=== PATIENT | female | born 1945 | race Caucasian/White ===

== ENCOUNTER → 2017-08-19 14:22 | Outpatient (CLI) | payer MEDICARE, OTHER, SELFPAY | PROVIDERS: PCP Family Medicine; Visit Provider Nurse Practitioner Family | DX: J02.9 Acute pharyngitis, unspecified (principal) | CPT/HCPCS: 87070; 87077 ==

== ENCOUNTER → 2017-09-06 08:29 | Outpatient (CLI) | payer MEDICARE, OTHER, SELFPAY ==
[2017-09-06 09:50] LABS: Add Manual Diff / Slide Review NO; Basophils Percent Auto 0.9 % (0-2); Eosinophils Percent Auto 1.4 % (2-4); Hemoglobin 10.9 g/dL (12.0-16.0); Lymphocytes Percent Auto 41.1 % (25-40); Mean Corpuscular HGB Conc 34.1 % (30-36); Mean Corpuscular Hemoglobin 31.8 PG (26-34); Mean Corpuscular Volume 93.3 fL (80-100); Monocytes Percent Auto 10.2 % (3-14); Neutrophils Absolute Auto 1600 /uL (3000-5900); Neutrophils Percent Auto 46.4 % (50-75); Platelet Count 163 X10^3/uL (150-400); Red Blood Cell Count 3.43 X10^6/uL (4.0-5.2); Red Cell Distribution Width 13.7 % (11.6-14.8); White Blood Cell Count 3.5 X10^3/uL (4.5-11.0)
[2017-09-06 10:25] LABS: Prothrombin Time 10.6 SECONDS (10.1-12.7)
[2017-09-06 10:28] LABS: PTT Partial Thromboplastin Tim 30 SECONDS (26.4-36.2)
[2017-09-06 10:29] LABS: BUN Creatinine Ratio 15.7 (6-22); Blood Urea Nitrogen 11 mg/dL (7-17); Calcium 9.8 mg/dL (8.4-10.2); Carbon Dioxide 27 mmol/L (22-32); Chloride 96 mmol/L (98-107); Estimated Glomerular Filt Rate > 60.0 mL/min (>60); Glucose 91 mg/dL (80-110); HEMOLYSIS < 15 (0-50); Sodium 132 mmol/L (137-145)
== END ==
PROVIDERS: PCP Family Medicine; Visit Provider Internal Medicine
DX: Z01.818 Encounter for other preprocedural examination (principal)
CPT/HCPCS: 36415; 80048; 85025; 85610; 85730

== ENCOUNTER → 2017-09-30 08:39 | Outpatient (CLI) | payer MEDICARE, OTHER, SELFPAY ==
[2017-09-30 09:15] LABS: Add Manual Diff / Slide Review NO; Basophils Percent Auto 1.6 % (0-2); Eosinophils Percent Auto 1.5 % (2-4); Hemoglobin 10.1 g/dL (12.0-16.0); Lymphocytes Percent Auto 35.9 % (25-40); Mean Corpuscular HGB Conc 33.7 % (30-36); Mean Corpuscular Hemoglobin 31.1 PG (26-34); Mean Corpuscular Volume 92.5 fL (80-100); Monocytes Percent Auto 13.1 % (3-14); Neutrophils Absolute Auto 1800 /uL (3000-5900); Neutrophils Percent Auto 47.9 % (50-75); Platelet Count 249 X10^3/uL (150-400); Red Blood Cell Count 3.24 X10^6/uL (4.0-5.2); Red Cell Distribution Width 14.5 % (11.6-14.8); White Blood Cell Count 3.7 X10^3/uL (4.5-11.0)
--- NOTE | 2017-10-01 13:12 | ONC.NAV ---
Description: T/C re: 10/12 appointment Activity: Left a detailed message for pt re: her upcoming appt. with Dr. Russo. Explained briefly that he is not able to take [employer] (her secondary insurance), and asked if she would be okay seeing Heather for her f/u appt that day. Requested a return call to confirm.
--- NOTE | 2017-10-05 11:20 | ONC.NAV ---
Description: T/C re: appt. time/provider change Activity: Called pt to confirm that her time with LENNY Silvestre will be at 1:30pm on 10/12. She expressed to this CORPORATE RECRUITER yesterday that she was willing to be seen by Heather for this one visit, in order to avoid an out of pocket co-pay due to Dr. Russo not being credentialed with her secondary insurance.
== END ==
PROVIDERS: PCP Internal Medicine; Visit Provider Physician Assistant
DX: D64.9 Anemia, unspecified (principal)
CPT/HCPCS: 36415; 85025

== ENCOUNTER → 2017-10-08 11:00 | Outpatient (CLI) | payer MEDICARE, OTHER, SELFPAY | PROVIDERS: PCP Internal Medicine; Visit Provider Nurse Practitioner Gerontology | DX: C85.90 Non-Hodgkin lymphoma, unspecified, unspecified site (principal) | CPT/HCPCS: 36415; 80053; 83615; 85025 ==

== ENCOUNTER → 2018-02-09 09:18 | Outpatient (CLI) | payer MEDICARE, OTHER, SELFPAY ==
[2018-02-09 11:23] LABS: TSH w/ Reflex to FT4 0.39 uIU/mL (0.47-4.68)
[2018-02-09 12:06] LABS: Add Manual Diff / Slide Review NO; Basophils Percent Auto 0.7 % (0-2); Hematocrit 34.7 % (36-46); Hemoglobin 11.5 g/dL (12.0-16.0); Lymphocytes Percent Auto 43.6 % (25-40); Mean Corpuscular HGB Conc 33.2 % (30-36); Mean Corpuscular Hemoglobin 30.7 PG (26-34); Mean Corpuscular Volume 92.5 fL (80-100); Monocytes Percent Auto 11.2 % (3-14); Neutrophils Absolute Auto 1200 /uL (3000-5900); Neutrophils Percent Auto 43.5 % (50-75); Platelet Count 170 X10^3/uL (150-400); Red Blood Cell Count 3.76 X10^6/uL (4.0-5.2); Red Cell Distribution Width 14.4 % (11.6-14.8); White Blood Cell Count 2.9 X10^3/uL (4.5-11.0)
[2018-02-09 16:32] LABS: Cholesterol 242 mg/dL (140-199); HDL Cholesterol 107 mg/dL (40-60); LDL Cholesterol Calculated 125 mg/dL (<100); Triglycerides 50 mg/dL (35-150)
[2018-02-09 21:06] LABS: Free T4, Direct Thyroxine 1.84 ng/dL (0.78-2.19)
== END ==
PROVIDERS: Visit Provider Family Medicine
DX: E04.1 Nontoxic single thyroid nodule (principal); E78.5 Hyperlipidemia, unspecified; Z00.00 Encounter for general adult medical examination without abnormal findings
CPT/HCPCS: 36415; 80061; 84439; 84443; 85025

== ENCOUNTER → 2018-04-18 09:19 | Outpatient (CLI) | payer MEDICARE, OTHER, SELFPAY ==
[2018-04-18 10:48] LABS: Add Manual Diff / Slide Review NO; Basophils Absolute Auto 0 /uL (0-100); Basophils Percent Auto 0.7 % (0-2); Eosinophils Absolute Auto 0 /uL (0-450); Eosinophils Percent Auto 1.1 % (2-4); Hematocrit 33.1 % (36-46); Hemoglobin 11.1 g/dL (12.0-16.0); Lymphocytes Absolute Auto 1300 /uL (1100-4500); Lymphocytes Percent Auto 45.3 % (25-40); Mean Corpuscular HGB Conc 33.6 % (30-36); Mean Corpuscular Hemoglobin 30.9 PG (26-34); Monocytes Absolute Auto 400 /uL (0-900); Monocytes Percent Auto 13.2 % (3-14); Neutrophils Absolute Auto 1200 /uL (1500-7000); Neutrophils Percent Auto 39.7 % (50-75); Platelet Count 168 X10^3/uL (150-400); Red Cell Distribution Width 13.9 % (11.6-14.8); White Blood Cell Count 2.9 X10^3/uL (4.5-11.0)
[2018-04-18 11:04] LABS: Alanine Aminotransferase 22 IU/L (9-52); Albumin 4.2 g/dL (3.5-5.0); Albumin Globulin Ratio 1.3 (1.0-2.8); Alkaline Phosphatase 58 U/L (38-126); Aspartate Aminotransferase 22 IU/L (14-36); BUN Creatinine Ratio 15.7 (6-22); Bilirubin Total 0.5 mg/dL (0.2-1.3); Blood Urea Nitrogen 11 mg/dL (7-17); Calcium 9.9 mg/dL (8.4-10.2); Carbon Dioxide 24 mmol/L (22-32); Chloride 100 mmol/L (98-107); Estimated Glomerular Filt Rate > 60.0 mL/min (>60); Globulin 3.3 g/dL (1.7-4.1); Glucose 91 mg/dL (80-110); HEMOLYSIS < 15 (0-50); Lactate Dehydrogenase 391 U/L (313-618); Potassium 4.1 mmol/L (3.4-5.1); Sodium 132 mmol/L (137-145); Total Protein 7.5 g/dL (6.3-8.2)
== END ==
PROVIDERS: PCP Family Medicine; Visit Provider Nurse Practitioner Gerontology
DX: C85.90 Non-Hodgkin lymphoma, unspecified, unspecified site (principal)
CPT/HCPCS: 36415; 80053; 83615; 85025

== ENCOUNTER → 2018-05-19 08:56 | Outpatient (CLI) | payer MEDICARE, OTHER, SELFPAY ==
[2018-05-19 10:30] LABS: Vitamin D 25 Hydroxy (D3) 45.9 ng/mL (30.0-100.0)
[2018-05-19 10:40] LABS: TSH w/ Reflex to FT4 0.71 uIU/mL (0.47-4.68)
== END ==
PROVIDERS: PCP Family Medicine; Visit Provider Family Medicine
DX: E04.1 Nontoxic single thyroid nodule (principal); M81.0 Age-related osteoporosis without current pathological fracture
CPT/HCPCS: 36415; 82306; 84443

== ENCOUNTER → 2019-04-13 09:00 | Outpatient (CLI) | payer MEDICARE, OTHER, SELFPAY ==
[2019-04-13 09:45] LABS: Add Manual Diff / Slide Review NO; Basophils Absolute Auto 0 /uL (0-100); Basophils Percent Auto 0.9 % (0-2); Eosinophils Absolute Auto 0 /uL (0-450); Eosinophils Percent Auto 0.8 % (2-4); Hemoglobin 11.4 g/dL (12.0-16.0); Lymphocytes Absolute Auto 1800 /uL (1100-4500); Lymphocytes Percent Auto 50.5 % (25-40); Mean Corpuscular HGB Conc 33.7 % (30-36); Mean Corpuscular Hemoglobin 31.3 PG (26-34); Mean Corpuscular Volume 92.9 fL (80-100); Monocytes Absolute Auto 400 /uL (0-900); Neutrophils Absolute Auto 1300 /uL (1500-7000); Neutrophils Percent Auto 36.8 % (50-75); Platelet Count 168 X10^3/uL (150-400); Red Blood Cell Count 3.66 X10^6/uL (4.0-5.2); Red Cell Distribution Width 14.2 % (11.6-14.8); White Blood Cell Count 3.6 X10^3/uL (4.5-11.0)
[2019-04-13 09:58] LABS: Alanine Aminotransferase 10 IU/L (<35); Albumin 4.3 g/dL (3.5-5.0); Albumin Globulin Ratio 1.3 (1.0-2.8); Alkaline Phosphatase 52 U/L (38-126); Aspartate Aminotransferase 22 IU/L (14-36); BUN Creatinine Ratio 21.4 (6-22); Bilirubin Total 0.6 mg/dL (0.2-1.3); Blood Urea Nitrogen 15 mg/dL (7-17); Calcium 10.3 mg/dL (8.4-10.2); Carbon Dioxide 28 mmol/L (22-32); Chloride 102 mmol/L (98-107); Estimated Glomerular Filt Rate > 60.0 mL/min (>60); Globulin 3.4 g/dL (1.7-4.1); Glucose 89 mg/dL (80-110); HEMOLYSIS < 15 (0-50); Lactate Dehydrogenase 393 U/L (313-618); Potassium 4.2 mmol/L (3.4-5.1); Sodium 137 mmol/L (137-145); Total Protein 7.7 g/dL (6.3-8.2)
== END ==
PROVIDERS: PCP Family Medicine
DX: C85.90 Non-Hodgkin lymphoma, unspecified, unspecified site (principal)
CPT/HCPCS: 36415; 80053; 83615; 85025

== ENCOUNTER → 2020-06-11 09:47 | Outpatient (CLI) | payer MEDICARE, OTHER, SELFPAY ==
[2020-06-11 11:07] LABS: Cholesterol 245 mg/dL (140-199); HDL Cholesterol 104 mg/dL (40-60); LDL Cholesterol Calculated 127 mg/dL (<100); Triglycerides 71 mg/dL (35-150)
[2020-06-11 11:33] LABS: TSH w/ Reflex to FT4 0.33 uIU/mL (0.47-4.68)
[2020-06-11 11:59] LABS: Free T4, Direct Thyroxine 1.59 ng/dL (0.78-2.19)
== END ==
PROVIDERS: PCP Family Medicine; Referring Provider Family Medicine; Visit Provider Family Medicine
DX: E03.9 Hypothyroidism, unspecified (principal); E78.5 Hyperlipidemia, unspecified
CPT/HCPCS: 36415; 80061; 84439; 84443

== ENCOUNTER 2020-07-22 11:00 | Outpatient (RCR) | payer MEDICARE, OTHER, SELFPAY ==
--- NOTE | 2020-06-24 15:15 | PT.OIE ---
Current Diagnoses Polyneuropathy, unspecified (06/24/20) History of falling (06/24/20) Past Medical History (Last Updated 06/03/20 @ 19:40 by Heather Katz DO) Anemia Chronic hepatitis C virus infection (08/10/14) Hepatitis C (2012) Hyperlipidemia Lumbar spinal stenosis Lymphoma, non-Hodgkin's (2008) Osteoporosis Thyroid nodule Tubular adenoma of colon (2013) Past Surgical History (Last Updated 09/22/17 @ 09:00 by Kadi Jimenez) History of colonoscopy (2007) History of hysterectomy for benign disease (1983) History of oophorectomy (2009) Visit Care Team Role Provider Type Heather Katz DO Attending Provider Physician Family Provider Primary Care Provider Referring Provider Specialty: Family Practice Address: [address] [place] [address], [address], [facility] Email: [email or web address] Physical Therapy Initial Evaluation PT-OP-A Visit Information Start: 06/21/20 07:57 Freq: Status: Active Protocol: Document 06/24/20 11:00 AMB (Rec: 06/24/20 15:14 AMB [email or web address]) Out-Patient Physical Therapy Visit Information Visit Information Visit Type Initial Evaluation Visit Start Time 11:00 Visit Stop Time 11:45 Total Visit Minutes 45 Visit Number 1 PT-OP-B Current Condition Start: 06/21/20 07:57 Freq: Status: Active Protocol: Document 06/24/20 11:00 AMB (Rec: 06/24/20 11:21 AMB [id number]) Current Condition History of Current Condition Onset Date chronic Current Complaints impaired balance History of Current Condition Trips on sidewalk, does have neuropathy from chemo. Did have a bad fall a year ago, when fell on the right knee. 2 falls in the last 6 months. Typically walks 3-4 miles, used to walk 4-5 miles a year ago. Did have a concussion from a fall at least 5 years ago. When on chemo, got on an antibiotic and was diagnosed with achilles tendonitis, continues to have pain in calves despite previous PT for that. Treatment Goals Patient/Caregiver Goals Looking for HEP for balance, increase walking without tripping on feet Prior Functional Status Baseline Function- ADL's Independent Baseline Function- Mobility Independent Current Functional Impairments (Reported) Functional Limitations- ADL's Multiple history of falls, limits walks due to feeling that she will trip over her feet at the end of her walk if she really pushes herself Personal Factors Other Personal Factors That May Effect L4-5 fusion 2018, glaucoma, Therapy/Recovery heck pain, previous chemotherapy for nonHodgkins lymphoma PT-OP-C Subjective Start: 06/21/20 07:57 Freq: Status: Active Protocol: Document 06/24/20 11:00 AMB (Rec: 06/24/20 15:14 AMB [email or web address]) Patient Questionnaires ABC- Activity Specific Balance Confidence Scale ABC Score 83 ABC Functional Impairment 1 to <20% Impaired (Score 81- 99) PT-OP-D Balance Start: 06/21/20 07:57 Freq: Status: Active Protocol: Document 06/24/20 11:00 AMB (Rec: 06/24/20 15:14 AMB [email or web address]) Balance Tests mCTSIB mCTSIB Position 1 30 mCTSIB Position 2 30 mCTSIB Position 3 30 mCTSIB Position 4 30 with increased ankle sway PT-OP-E Functional Tests Start: 06/21/20 07:57 Freq: Status: Active Protocol: Document 06/24/20 11:00 AMB (Rec: 06/24/20 15:14 AMB [email or web address]) Functional Tests Dynamic Gait Index (DGI) Score 21 DGI Impairment Rating 1 to <20% Impaired (Score 20- 23) PT-OP-G Mobility & Gait Start: 06/21/20 07:57 Freq: Status: Active Protocol: Document 06/24/20 11:00 AMB (Rec: 06/24/20 15:14 AMB [email or web address]) OP Gait Assessment Comments Gait Comments Good walking for short distances indoors without AD, increased veering with horizontal head turns. Stairs -one mild mistep- self corrected, did not use railings PT-OP-H Neuro Start: 06/21/20 07:57 Freq: Status: Active Protocol: Document 06/24/20 11:00 AMB (Rec: 06/24/20 15:14 AMB [email or web address]) Coordination Evaluation Lower Extremity Tests Left Foot Tapping Test Normal Performance PT-OP-M Strength Start: 06/21/20 07:57 Freq: Status: Active Protocol: Document 06/24/20 11:00 AMB (Rec: 06/24/20 15:14 AMB [email or web address]) Hip Strength Hip Manual Muscle Testing Right Flexion (L2) 4+ Good+ Extension (S1) 4+ Good+ Abduction 4 Good Adduction 4 Good Left Flexion (L2) 4+ Good+ Extension (S1) 4+ Good+ Abduction 4 Good Adduction 4 Good Knee Strength Knee Manual Muscle Testing Right Flexion (S2) 5 Normal Extension (L3) 5 Normal Left Flexion (S2) 5 Normal Extension (L3) 5 Normal Ankle/Foot Strength Ankle and Foot Manual Muscle Testing Right Dorsiflexion (L4) 4 Good Plantarflexion (S1) 5 Normal Left Dorsiflexion (L4) 4 Good Plantarflexion (S1) 4+ Good+ PT-OP-T Assessment and Plan Start: 06/21/20 07:57 Freq: Status: Active Protocol: Document 06/24/20 11:00 AMB (Rec: 06/24/20 15:14 AMB [email or web address]) Physical Therapy Assessment Rehab Potential Rehabilitation Potential Good Evaluation Complexity Number of Personal Factors/Comorbidities 1-2 Number of Body Systems Impaired 3 Clinical Presentation at Evaluation Evolving Impairments Impairments Balance,Functional Activities, Gait,Sensation,Strength Goals Two Impairment Balance Short Term Goal (STG) Whitley will improve her DGI score to 23/24 or better, showing decreased risk of falling. STG Duration 4 weeks Skilled Nursing Goal (LTG) Whitley will walk while turning her head without veering so she can safely walk through a parking lot while checking for traffic. LTG Duration 8 weeks One Impairment HEP Short Term Goal (STG) Whitley will be independent with a HEP for balance and LE strength/agility. STG Duration 4 weeks Assessment Summary Assessment Whitley attends physical therapy with reduced LE sensation/strength that is contributing to her history of falling. While her MMT looked ok, she describes more difficulty with her balance when her legs are fatigued, as well as in low light conditions. While physical therapy cannot change her decreased sensation, she is very dependent upon her vision for her balance. She will benefit from physical therapy to improve her reactive balance, decrease her reliance on her vision, and improve her ankle strength all to decrease her risk of falling. Physical Therapy Plan Frequency and Duration Frequency of Treatment 1x/Week Duration of Treatment 8 weeks Plan of Care Start Date 06/24/20 Plan of Care End Date 08/19/20 Therapeutic Interventions Therapeutic Interventions Balance Training,Gait Training ,Home Exercise Program,Manual Therapy,Neuromuscular Re- education,Self-Care/Home Management,Therapeutic Activities,Therapeutic Exercises Modalities Cold Pack/Ice Massage,Hot Packs Next Visit Focus/Plan Next Note Type Treatment Note Next Visit Plan Begin training in reactive balance, ankle strengthening, follow up on corner balance ( stride stance EO HT)
--- NOTE | 2020-06-24 15:15 | PT.OPPOC ---
Physical, Occupational & Speech Therapy At [facility] Current Diagnoses Polyneuropathy, unspecified (06/24/20) History of falling (06/24/20) Visit Care Team Role Provider Type Heather Katz DO Attending Provider Physician Family Provider Primary Care Provider Referring Provider Specialty: Family Practice Address: [address] [place] [address], [address], [facility] Email: [email or web address] Plan Of Care PT-OP-T Assessment and Plan Start: 06/21/20 07:57 Freq: Status: Active Protocol: Document 06/24/20 11:00 AMB (Rec: 06/24/20 15:14 AMB [email or web address]) Physical Therapy Assessment Rehab Potential Rehabilitation Potential Good Evaluation Complexity Number of Personal Factors/Comorbidities 1-2 Number of Body Systems Impaired 3 Clinical Presentation at Evaluation Evolving Impairments Impairments Balance,Functional Activities, Gait,Sensation,Strength Goals Two Impairment Balance Short Term Goal (STG) Whitley will improve her DGI score to 23/24 or better, showing decreased risk of falling. STG Duration 4 weeks Mcc Goal (LTG) Whitley will walk while turning her head without veering so she can safely walk through a parking lot while checking for traffic. LTG Duration 8 weeks One Impairment HEP Short Term Goal (STG) Whitley will be independent with a HEP for balance and LE strength/agility. STG Duration 4 weeks Assessment Summary Assessment Whitley attends physical therapy with reduced LE sensation/strength that is contributing to her history of falling. While her MMT looked ok, she describes more difficulty with her balance when her legs are fatigued, as well as in low light conditions. While physical therapy cannot change her decreased sensation, she is very dependent upon her vision for her balance. She will benefit from physical therapy to improve her reactive balance, decrease her reliance on her vision, and improve her ankle strength all to decrease her risk of falling. Physical Therapy Plan Frequency and Duration Frequency of Treatment 1x/Week Duration of Treatment 8 weeks Plan of Care Start Date 06/24/20 Plan of Care End Date 08/19/20 Therapeutic Interventions Therapeutic Interventions Balance Training,Gait Training ,Home Exercise Program,Manual Therapy,Neuromuscular Re- education,Self-Care/Home Management,Therapeutic Activities,Therapeutic Exercises Modalities Cold Pack/Ice Massage,Hot Packs Next Visit Focus/Plan Next Note Type Treatment Note Next Visit Plan Begin training in reactive balance, ankle strengthening, follow up on corner balance ( stride stance EO HT) Plan of Care Dates Plan of Care Start Date 06/24/20 Plan of Care End Date 08/19/20 Electronically Signed by: Patricia Harris, PT 06/24/20 [id number] Please Sign and Return: I have reviewed this Plan of Care and certify that the skilled therapy services above are required to meet the patient?s needs. Physician Signature Date Printed Name and Credentials Clinical Instructor Signature Printed Name and Credentials
--- NOTE | 2020-07-01 16:12 | PT.OTN ---
Current Diagnoses Polyneuropathy, unspecified (07/01/20) History of falling (07/01/20) Physical Therapy Treatment Note PT-OP-A Visit Information Start: 06/21/20 07:57 Freq: Status: Active Protocol: Document 07/01/20 11:25 AMB (Rec: 07/01/20 11:59 AMB [id number]) Out-Patient Physical Therapy Visit Information Visit Information Visit Type Treatment Note Visit Note pt arrived 10 min late Visit Start Time 11:10 Visit Stop Time 11:50 Total Visit Minutes 40 Visit Number 2 PT-OP-B Current Condition Start: 06/21/20 07:57 Freq: Status: Active Protocol: Document 06/24/20 11:00 AMB (Rec: 06/24/20 11:21 AMB [id number]) Current Condition History of Current Condition Onset Date chronic Current Complaints impaired balance History of Current Condition Trips on sidewalk, does have neuropathy from chemo. Did have a bad fall a year ago, when fell on the right knee. 2 falls in the last 6 months. Typically walks 3-4 miles, used to walk 4-5 miles a year ago. Did have a concussion from a fall at least 5 years ago. When on chemo, got on an antibiotic and was diagnosed with achilles tendonitis, continues to have pain in calves despite previous PT for that. Treatment Goals Patient/Caregiver Goals Looking for HEP for balance, increase walking without tripping on feet Prior Functional Status Baseline Function- ADL's Independent Baseline Function- Mobility Independent Current Functional Impairments (Reported) Functional Limitations- ADL's Multiple history of falls, limits walks due to feeling that she will trip over her feet at the end of her walk if she really pushes herself Personal Factors Other Personal Factors That May Effect L4-5 fusion 2018, glaucoma, Therapy/Recovery heck pain, previous chemotherapy for nonHodgkins lymphoma PT-OP-C Subjective Start: 06/21/20 07:57 Freq: Status: Active Protocol: Document 07/01/20 11:25 AMB (Rec: 07/01/20 11:59 AMB [id number]) OP-PT Subjective Patient Comments Patient Comments Pt did have some neck pain with modified tandem with head turns. PT-OP-D Balance Start: 06/21/20 07:57 Freq: Status: Active Protocol: Document 06/24/20 11:00 AMB (Rec: 06/24/20 15:14 AMB [email or web address]) Balance Tests mCTSIB mCTSIB Position 1 30 mCTSIB Position 2 30 mCTSIB Position 3 30 mCTSIB Position 4 30 with increased ankle sway PT-OP-E Functional Tests Start: 06/21/20 07:57 Freq: Status: Active Protocol: Document 06/24/20 11:00 AMB (Rec: 06/24/20 15:14 AMB [email or web address]) Functional Tests Dynamic Gait Index (DGI) Score 21 DGI Impairment Rating 1 to <20% Impaired (Score 20- 23) PT-OP-G Mobility & Gait Start: 06/21/20 07:57 Freq: Status: Active Protocol: Document 06/24/20 11:00 AMB (Rec: 06/24/20 15:14 AMB [email or web address]) OP Gait Assessment Comments Gait Comments Good walking for short distances indoors without AD, increased veering with horizontal head turns. Stairs -one mild mistep- self corrected, did not use railings PT-OP-H Neuro Start: 06/21/20 07:57 Freq: Status: Active Protocol: Document 06/24/20 11:00 AMB (Rec: 06/24/20 15:14 AMB [email or web address]) Coordination Evaluation Lower Extremity Tests Left Foot Tapping Test Normal Performance PT-OP-M Strength Start: 06/21/20 07:57 Freq: Status: Active Protocol: Document 06/24/20 11:00 AMB (Rec: 06/24/20 15:14 AMB [email or web address]) Hip Strength Hip Manual Muscle Testing Right Flexion (L2) 4+ Good+ Extension (S1) 4+ Good+ Abduction 4 Good Adduction 4 Good Left Flexion (L2) 4+ Good+ Extension (S1) 4+ Good+ Abduction 4 Good Adduction 4 Good Knee Strength Knee Manual Muscle Testing Right Flexion (S2) 5 Normal Extension (L3) 5 Normal Left Flexion (S2) 5 Normal Extension (L3) 5 Normal Ankle/Foot Strength Ankle and Foot Manual Muscle Testing Right Dorsiflexion (L4) 4 Good Plantarflexion (S1) 5 Normal Left Dorsiflexion (L4) 4 Good Plantarflexion (S1) 4+ Good+ PT-OP-Q Treatments Start: 06/21/20 07:57 Freq: Status: Active Protocol: Document 07/01/20 11:00 AMB (Rec: 07/01/20 16:10 AMB [id number]) Gym Equipment Shuttle Balance 1 Details RED Reps/Duration 10 min Comments NBOS and then modified tandem Therapeutic Exercises Sitting Exercises 2 Sitting Exercise Name dorsiflexion AROM Reps/Minutes 3 min 1 Sitting Exercise Name ankle eversion Resistance #3 t band Reps/Minutes 2x10 Standing Exercises 1 Standing Exercise Name heel raises Comments standing- double then single leg Neuro Re-Education Treatment Balance Activities 1 Details foam balance Comments hollins foam, then two blue pods for modified tandem stance PT-OP-T Assessment and Plan Start: 06/21/20 07:57 Freq: Status: Active Protocol: Document 07/01/20 11:25 AMB (Rec: 07/01/20 11:59 AMB [id number]) Physical Therapy Assessment Assessment Summary Assessment Whitley does better when R LE is back in stride stance activities. Overall tolerated balance activities well, but will need to recheck on how she felt next day due to delayed onset soreness. Physical Therapy Plan Next Visit Focus/Plan Next Note Type Treatment Note Next Visit Plan Begin training in reactive balance, ankle strengthening, follow up on corner balance ( stride stance EO HT), added heel raises and toe taping for ant tib
--- NOTE | 2020-07-09 15:46 | PT.OTN ---
Current Diagnoses Polyneuropathy, unspecified (07/09/20) History of falling (07/09/20) Physical Therapy Treatment Note PT-OP-A Visit Information Start: 06/21/20 07:57 Freq: Status: Active Protocol: Document 07/09/20 10:15 AMB (Rec: 07/09/20 11:02 AMB [email or web address]) Out-Patient Physical Therapy Visit Information Visit Information Visit Type Treatment Note Visit Start Time 10:15 Visit Stop Time 11:00 Total Visit Minutes 45 Visit Number 3 PT-OP-B Current Condition Start: 06/21/20 07:57 Freq: Status: Active Protocol: Document 06/24/20 11:00 AMB (Rec: 06/24/20 11:21 AMB [id number]) Current Condition History of Current Condition Onset Date chronic Current Complaints impaired balance History of Current Condition Trips on sidewalk, does have neuropathy from chemo. Did have a bad fall a year ago, when fell on the right knee. 2 falls in the last 6 months. Typically walks 3-4 miles, used to walk 4-5 miles a year ago. Did have a concussion from a fall at least 5 years ago. When on chemo, got on an antibiotic and was diagnosed with achilles tendonitis, continues to have pain in calves despite previous PT for that. Treatment Goals Patient/Caregiver Goals Looking for HEP for balance, increase walking without tripping on feet Prior Functional Status Baseline Function- ADL's Independent Baseline Function- Mobility Independent Current Functional Impairments (Reported) Functional Limitations- ADL's Multiple history of falls, limits walks due to feeling that she will trip over her feet at the end of her walk if she really pushes herself Personal Factors Other Personal Factors That May Effect L4-5 fusion 2018, glaucoma, Therapy/Recovery heck pain, previous chemotherapy for nonHodgkins lymphoma PT-OP-C Subjective Start: 06/21/20 07:57 Freq: Status: Active Protocol: Document 07/09/20 10:15 AMB (Rec: 07/09/20 11:02 AMB [email or web address]) OP-PT Subjective Patient Comments Patient Comments Pt feels like she might be getting better with the balance exercises. PT-OP-D Balance Start: 06/21/20 07:57 Freq: Status: Active Protocol: Document 06/24/20 11:00 AMB (Rec: 06/24/20 15:14 AMB [email or web address]) Balance Tests mCTSIB mCTSIB Position 1 30 mCTSIB Position 2 30 mCTSIB Position 3 30 mCTSIB Position 4 30 with increased ankle sway PT-OP-E Functional Tests Start: 06/21/20 07:57 Freq: Status: Active Protocol: Document 06/24/20 11:00 AMB (Rec: 06/24/20 15:14 AMB [email or web address]) Functional Tests Dynamic Gait Index (DGI) Score 21 DGI Impairment Rating 1 to <20% Impaired (Score 20- 23) PT-OP-G Mobility & Gait Start: 06/21/20 07:57 Freq: Status: Active Protocol: Document 06/24/20 11:00 AMB (Rec: 06/24/20 15:14 AMB [email or web address]) OP Gait Assessment Comments Gait Comments Good walking for short distances indoors without AD, increased veering with horizontal head turns. Stairs -one mild mistep- self corrected, did not use railings PT-OP-H Neuro Start: 06/21/20 07:57 Freq: Status: Active Protocol: Document 06/24/20 11:00 AMB (Rec: 06/24/20 15:14 AMB [email or web address]) Coordination Evaluation Lower Extremity Tests Left Foot Tapping Test Normal Performance PT-OP-M Strength Start: 06/21/20 07:57 Freq: Status: Active Protocol: Document 06/24/20 11:00 AMB (Rec: 06/24/20 15:14 AMB [email or web address]) Hip Strength Hip Manual Muscle Testing Right Flexion (L2) 4+ Good+ Extension (S1) 4+ Good+ Abduction 4 Good Adduction 4 Good Left Flexion (L2) 4+ Good+ Extension (S1) 4+ Good+ Abduction 4 Good Adduction 4 Good Knee Strength Knee Manual Muscle Testing Right Flexion (S2) 5 Normal Extension (L3) 5 Normal Left Flexion (S2) 5 Normal Extension (L3) 5 Normal Ankle/Foot Strength Ankle and Foot Manual Muscle Testing Right Dorsiflexion (L4) 4 Good Plantarflexion (S1) 5 Normal Left Dorsiflexion (L4) 4 Good Plantarflexion (S1) 4+ Good+ PT-OP-Q Treatments Start: 06/21/20 07:57 Freq: Status: Active Protocol: Document 07/09/20 10:15 AMB (Rec: 07/09/20 15:45 AMB [email or web address]) Gym Equipment Shuttle Balance 1 Details RED Reps/Duration 10 min Comments NBOS and then modified tandem. Added EC- challenging Neuro Re-Education Treatment Balance Activities 4 Details reactive balance Comments fwd/lateral/backward stepping 3 Details bosu ball Comments needed UE support for double leg EO 2 Details wobble board Comments a/p, m/l 1 Details foam balance Comments hollins foam, then blue foam EC PT-OP-T Assessment and Plan Start: 06/21/20 07:57 Freq: Status: Active Protocol: Document 07/09/20 10:15 AMB (Rec: 07/09/20 15:45 AMB [email or web address]) Physical Therapy Assessment Assessment Summary Assessment Whitley did well with blue foam and wobble board, bosu ball was likely too challenging. Physical Therapy Plan Next Visit Focus/Plan Next Note Type Treatment Note Next Visit Plan Follow up on balance with wobble board- pt interested in getting one
--- NOTE | 2020-07-17 08:29 | PT.OTN ---
Current Diagnoses Polyneuropathy, unspecified (07/17/20) History of falling (07/17/20) Physical Therapy Treatment Note PT-OP-A Visit Information Start: 06/21/20 07:57 Freq: Status: Active Protocol: Document 07/17/20 07:30 AMB (Rec: 07/20/20 08:28 AMB [email or web address]) Out-Patient Physical Therapy Visit Information Visit Information Visit Type Treatment Note Visit Start Time 07:30 Visit Stop Time 08:15 Total Visit Minutes 45 Visit Number 4 PT-OP-B Current Condition Start: 06/21/20 07:57 Freq: Status: Active Protocol: Document 06/24/20 11:00 AMB (Rec: 06/24/20 11:21 AMB [id number]) Current Condition History of Current Condition Onset Date chronic Current Complaints impaired balance History of Current Condition Trips on sidewalk, does have neuropathy from chemo. Did have a bad fall a year ago, when fell on the right knee. 2 falls in the last 6 months. Typically walks 3-4 miles, used to walk 4-5 miles a year ago. Did have a concussion from a fall at least 5 years ago. When on chemo, got on an antibiotic and was diagnosed with achilles tendonitis, continues to have pain in calves despite previous PT for that. Treatment Goals Patient/Caregiver Goals Looking for HEP for balance, increase walking without tripping on feet Prior Functional Status Baseline Function- ADL's Independent Baseline Function- Mobility Independent Current Functional Impairments (Reported) Functional Limitations- ADL's Multiple history of falls, limits walks due to feeling that she will trip over her feet at the end of her walk if she really pushes herself Personal Factors Other Personal Factors That May Effect L4-5 fusion 2018, glaucoma, Therapy/Recovery heck pain, previous chemotherapy for nonHodgkins lymphoma PT-OP-C Subjective Start: 06/21/20 07:57 Freq: Status: Active Protocol: Document 07/17/20 07:30 AMB (Rec: 07/20/20 08:28 AMB [email or web address]) OP-PT Subjective Patient Comments Patient Comments Pt bought a bosu ball. PT-OP-D Balance Start: 06/21/20 07:57 Freq: Status: Active Protocol: Document 06/24/20 11:00 AMB (Rec: 06/24/20 15:14 AMB [email or web address]) Balance Tests mCTSIB mCTSIB Position 1 30 mCTSIB Position 2 30 mCTSIB Position 3 30 mCTSIB Position 4 30 with increased ankle sway PT-OP-E Functional Tests Start: 06/21/20 07:57 Freq: Status: Active Protocol: Document 06/24/20 11:00 AMB (Rec: 06/24/20 15:14 AMB [email or web address]) Functional Tests Dynamic Gait Index (DGI) Score 21 DGI Impairment Rating 1 to <20% Impaired (Score 20- 23) PT-OP-G Mobility & Gait Start: 06/21/20 07:57 Freq: Status: Active Protocol: Document 06/24/20 11:00 AMB (Rec: 06/24/20 15:14 AMB [email or web address]) OP Gait Assessment Comments Gait Comments Good walking for short distances indoors without AD, increased veering with horizontal head turns. Stairs -one mild mistep- self corrected, did not use railings PT-OP-H Neuro Start: 06/21/20 07:57 Freq: Status: Active Protocol: Document 06/24/20 11:00 AMB (Rec: 06/24/20 15:14 AMB [email or web address]) Coordination Evaluation Lower Extremity Tests Left Foot Tapping Test Normal Performance PT-OP-M Strength Start: 06/21/20 07:57 Freq: Status: Active Protocol: Document 06/24/20 11:00 AMB (Rec: 06/24/20 15:14 AMB [email or web address]) Hip Strength Hip Manual Muscle Testing Right Flexion (L2) 4+ Good+ Extension (S1) 4+ Good+ Abduction 4 Good Adduction 4 Good Left Flexion (L2) 4+ Good+ Extension (S1) 4+ Good+ Abduction 4 Good Adduction 4 Good Knee Strength Knee Manual Muscle Testing Right Flexion (S2) 5 Normal Extension (L3) 5 Normal Left Flexion (S2) 5 Normal Extension (L3) 5 Normal Ankle/Foot Strength Ankle and Foot Manual Muscle Testing Right Dorsiflexion (L4) 4 Good Plantarflexion (S1) 5 Normal Left Dorsiflexion (L4) 4 Good Plantarflexion (S1) 4+ Good+ PT-OP-Q Treatments Start: 06/21/20 07:57 Freq: Status: Active Protocol: Document 07/17/20 07:30 AMB (Rec: 07/20/20 08:28 AMB [email or web address]) Neuro Re-Education Treatment Balance Activities 6 Details hallway walking Comments HT horiz and vertical 5 Details corner balance Reps/Duration 15 min Comments NBOS, modified tandem, EC, HT 3 Details bosu ball Comments needed UE support for double leg EO, tried EC but very challenging PT-OP-T Assessment and Plan Start: 06/21/20 07:57 Freq: Status: Active Protocol: Document 07/17/20 07:36 AMB (Rec: 07/17/20 08:13 AMB [id number]) Physical Therapy Assessment Goals Two Impairment Balance Short Term Goal (STG) Whitley will improve her DGI score to 23/24 or better, showing decreased risk of falling. STG Duration 4 weeks Trip Motor Operator Goal (LTG) Whitley will walk while turning her head without veering so she can safely walk through a parking lot while checking for traffic. LTG Duration 8 weeks One Impairment HEP Short Term Goal (STG) Whitley will be independent with a HEP for balance and LE strength/agility. STG Duration 4 weeks Assessment Summary Assessment Reviewed ankle strengthening and discussed foot/ankle role in balance. PT can do corner balance exercises and be reasonably challenged. Doesn' t necessarily need bosu ball, but if she wants one, she should use UE support for now. Physical Therapy Plan Next Visit Focus/Plan Next Visit Plan Pt feeling next visit might be the last as she has a HEP that she can do independently
--- NOTE | 2020-07-22 11:53 | PT.OTN ---
Current Diagnoses Polyneuropathy, unspecified (07/22/20) History of falling (07/22/20) Physical Therapy Treatment Note PT-OP-A Visit Information Start: 06/21/20 07:57 Freq: Status: Active Protocol: Document 07/22/20 11:00 AMB (Rec: 07/22/20 11:53 AMB [id number]) Out-Patient Physical Therapy Visit Information Visit Information Visit Type Treatment Note Visit Start Time 11:00 Visit Stop Time 11:45 Total Visit Minutes 45 Visit Number 5 PT-OP-B Current Condition Start: 06/21/20 07:57 Freq: Status: Active Protocol: Document 06/24/20 11:00 AMB (Rec: 06/24/20 11:21 AMB [id number]) Current Condition History of Current Condition Onset Date chronic Current Complaints impaired balance History of Current Condition Trips on sidewalk, does have neuropathy from chemo. Did have a bad fall a year ago, when fell on the right knee. 2 falls in the last 6 months. Typically walks 3-4 miles, used to walk 4-5 miles a year ago. Did have a concussion from a fall at least 5 years ago. When on chemo, got on an antibiotic and was diagnosed with achilles tendonitis, continues to have pain in calves despite previous PT for that. Treatment Goals Patient/Caregiver Goals Looking for HEP for balance, increase walking without tripping on feet Prior Functional Status Baseline Function- ADL's Independent Baseline Function- Mobility Independent Current Functional Impairments (Reported) Functional Limitations- ADL's Multiple history of falls, limits walks due to feeling that she will trip over her feet at the end of her walk if she really pushes herself Personal Factors Other Personal Factors That May Effect L4-5 fusion 2018, glaucoma, Therapy/Recovery heck pain, previous chemotherapy for nonHodgkins lymphoma PT-OP-C Subjective Start: 06/21/20 07:57 Freq: Status: Active Protocol: Document 07/22/20 11:00 AMB (Rec: 07/22/20 11:53 AMB [id number]) OP-PT Subjective Patient Comments Patient Comments Pt is ready to be discharged. PT-OP-D Balance Start: 06/21/20 07:57 Freq: Status: Active Protocol: Document 06/24/20 11:00 AMB (Rec: 06/24/20 15:14 AMB [email or web address]) Balance Tests mCTSIB mCTSIB Position 1 30 mCTSIB Position 2 30 mCTSIB Position 3 30 mCTSIB Position 4 30 with increased ankle sway PT-OP-E Functional Tests Start: 06/21/20 07:57 Freq: Status: Active Protocol: Document 06/24/20 11:00 AMB (Rec: 06/24/20 15:14 AMB [email or web address]) Functional Tests Dynamic Gait Index (DGI) Score 21 DGI Impairment Rating 1 to <20% Impaired (Score 20- 23) PT-OP-G Mobility & Gait Start: 06/21/20 07:57 Freq: Status: Active Protocol: Document 06/24/20 11:00 AMB (Rec: 06/24/20 15:14 AMB [email or web address]) OP Gait Assessment Comments Gait Comments Good walking for short distances indoors without AD, increased veering with horizontal head turns. Stairs -one mild mistep- self corrected, did not use railings PT-OP-H Neuro Start: 06/21/20 07:57 Freq: Status: Active Protocol: Document 06/24/20 11:00 AMB (Rec: 06/24/20 15:14 AMB [email or web address]) Coordination Evaluation Lower Extremity Tests Left Foot Tapping Test Normal Performance PT-OP-M Strength Start: 06/21/20 07:57 Freq: Status: Active Protocol: Document 06/24/20 11:00 AMB (Rec: 06/24/20 15:14 AMB [email or web address]) Hip Strength Hip Manual Muscle Testing Right Flexion (L2) 4+ Good+ Extension (S1) 4+ Good+ Abduction 4 Good Adduction 4 Good Left Flexion (L2) 4+ Good+ Extension (S1) 4+ Good+ Abduction 4 Good Adduction 4 Good Knee Strength Knee Manual Muscle Testing Right Flexion (S2) 5 Normal Extension (L3) 5 Normal Left Flexion (S2) 5 Normal Extension (L3) 5 Normal Ankle/Foot Strength Ankle and Foot Manual Muscle Testing Right Dorsiflexion (L4) 4 Good Plantarflexion (S1) 5 Normal Left Dorsiflexion (L4) 4 Good Plantarflexion (S1) 4+ Good+ PT-OP-Q Treatments Start: 06/21/20 07:57 Freq: Status: Active Protocol: Document 07/22/20 11:00 AMB (Rec: 07/22/20 11:53 AMB [id number]) Gym Equipment Shuttle Balance 1 Details RED Reps/Duration 10 min Comments NBOS and then modified tandem. a/p and then m/l Neuro Re-Education Treatment Balance Activities 6 Details hallway walking Comments HT horiz and vertical 5 Details corner balance Reps/Duration 15 min Comments NBOS, modified tandem, EC, HT 4 Details reactive balance Comments fwd/lateral/backward stepping 1 Details foam balance Comments hollins foam, then blue foam EC PT-OP-T Assessment and Plan Start: 06/21/20 07:57 Freq: Status: Active Protocol: Document 07/22/20 11:00 AMB (Rec: 07/22/20 11:53 AMB [id number]) Physical Therapy Assessment Goals Two Impairment Balance Short Term Goal (STG) Whitley will improve her DGI score to 23/24 or better, showing decreased risk of falling. STG Duration Completion Engineer Goal (LTG) Whitley will walk while turning her head without veering so she can safely walk through a parking lot while checking for traffic. LTG Duration 8 weeks One Impairment HEP Short Term Goal (STG) Whitley will be independent with a HEP for balance and LE strength/agility. STG Duration 4 weeks Assessment Summary Assessment Reviewed HEP. Whitley improved DGI from to and feels confident in her ability to progress her exercises from here independently, therefore she is discharged. Physical Therapy Plan Discharge Physical Therapy Discharge Reasons Goals Met
== END 2020-07-23 14:48 | disposition home or self-care (01) ==
LOC: PHYS 11:00
PROVIDERS: Family Provider Family Medicine; PCP Family Medicine; Referring Provider Family Medicine; Visit Provider Family Medicine
DX: G62.9 Polyneuropathy, unspecified (principal); Z91.81 History of falling
CPT/HCPCS: 97110; 97112; 97162

== ENCOUNTER → 2020-07-29 09:51 | Outpatient (CLI) | payer MEDICARE, OTHER, SELFPAY ==
--- NOTE | 2020-07-29 09:52 | DI.MG.S_ITS ---
BILATERAL DIGITAL SCREENING MAMMOGRAM 3D/2D WITH CAD: 07/29/2020 CLINICAL: Routine screening. Family history of breast cancer. Comparison is made to exams dated: 05/14/2017 mammogram, 04/12/2015 mammogram, and 11/26/2011 mammogram - [facility]. The tissue of both breasts is heterogeneously dense. This may lower the sensitivity of mammography. Current study was also evaluated with a Computer Aided Detection (CAD) system. No significant masses, calcifications, or other findings are seen in either breast. There has been no significant interval change. IMPRESSION: NEGATIVE There is no mammographic evidence of malignancy. A 1 year screening mammogram is recommended. This exam was interpreted at Station ID: [id number]. NOTE: For mammograms, a report in lay terms will be sent to the patient. Approximately 15% of breast malignancies will not be visualized mammographically. In the management of a palpable breast mass, a negative mammogram must not discourage biopsy of a clinically suspicious lesion. Electronically Signed By: Donovan Zaman M.D., jr/della:07/29/2020 10:43:08 letter sent: Normal Exam ACR BI-RADS Category 1: Negative [id number]
== END ==
PROVIDERS: Family Provider Family Medicine; PCP Family Medicine; Referring Provider Family Medicine; Visit Provider Family Medicine
DX: Z12.31 Encounter for screening mammogram for malignant neoplasm of breast (principal); M81.0 Age-related osteoporosis without current pathological fracture; Z80.3 Family history of malignant neoplasm of breast; Z78.0 Asymptomatic menopausal state; E07.9 Disorder of thyroid, unspecified; Z82.62 Family history of osteoporosis
CPT/HCPCS: 77063; 77067; 77080

== ENCOUNTER → 2020-09-25 16:16 | Outpatient (CLI) | payer MEDICARE, OTHER, SELFPAY ==
--- NOTE | 2020-09-25 16:18 | DI.US.S_ITS ---
PROCEDURE: US THYROID INDICATIONS: thyroid nodules TECHNIQUE: Real-time scanning was performed of the thyroid gland, with image documentation. COMPARISON: [facility], [place], THYROID, 03/14/2015, 12:30. FINDINGS: Right: Thyroid lobe measures 4.3 x 1.8 x 1.7 cm, and is homogeneous in echotexture. Left: Thyroid lobe measures 3.9 x 2.2 x 1.8 cm, and is homogenous in echotexture. Isthmus: 4 mm thick. Nodule number: 1 Location: Left mid to lower pole Size: 1.8 x 1.5 x 2.1 cm, previously 2.0 x 2.0 x 2.2 cm. Composition: Mixed solid and cystic Echogenicity: Isoechoic Shape: wider than tall. Margins: Smooth Echogenic foci: None Total points: 2 ACR TI-RADS category: Not suspicious IMPRESSION: Slight interval decrease in size of left thyroid nodule. No FNA needed. ACR TI-RADS definitions and recommendations: TI-RADS 1 (benign): 0 points. FNA not needed. TI-RADS 2 (not suspicious): 2 points. FNA not needed. TI-RADS 3 (mildly suspicious): 3 points. * FNA if 2.5 cm or larger, follow up if 1.5 cm or larger (at 1, 3, and 5 years). TI-RADS 4 (moderately suspicious): 4-6 points. * FNA if 1.5 cm or larger, follow up if 1 cm or larger (at 1, 2, 3, and 5 years). TI-RADS 5 (highly suspicious): 7 points or more. * FNA if 1 cm or larger, follow up if 0.5 cm or larger (every year for 5 years). Dictated by: Mateo Toledo M.D. on 09/27/2020 at 15:13 Approved by: Mateo Toledo M.D. on 09/27/2020 at 15:16
== END ==
PROVIDERS: Family Provider Family Medicine; PCP Family Medicine; Referring Provider Family Medicine; Visit Provider Family Medicine
DX: E04.1 Nontoxic single thyroid nodule (principal)
CPT/HCPCS: 76536

== ENCOUNTER → 2021-01-24 09:16 | Outpatient (CLI) | payer MEDICARE, OTHER, SELFPAY ==
[2021-01-24 09:36] LABS: Add Manual Diff / Slide Review NO; Basophils Absolute Auto 0 /uL (0-100); Basophils Percent Auto 0.5 % (0-2); Eosinophils Absolute Auto 0 /uL (0-450); Eosinophils Percent Auto 0.7 % (2-4); Hematocrit 32.8 % (36-46); Lymphocytes Absolute Auto 1900 /uL (1100-4500); Lymphocytes Percent Auto 51.4 % (25-40); Mean Corpuscular HGB Conc 33.7 % (30-36); Mean Corpuscular Hemoglobin 30.9 PG (26-34); Mean Corpuscular Volume 91.8 fL (80-100); Monocytes Absolute Auto 400 /uL (0-900); Monocytes Percent Auto 10.7 % (3-14); Neutrophils Absolute Auto 1400 /uL (1500-7000); Neutrophils Percent Auto 36.7 % (50-75); Platelet Count 181 X10^3/uL (150-400); Red Blood Cell Count 3.57 X10^6/uL (4.0-5.2); Red Cell Distribution Width 14.2 % (11.6-14.8); White Blood Cell Count 3.8 X10^3/uL (4.5-11.0)
[2021-01-24 09:43] LABS: Lactate Dehydrogenase 405 U/L (313-618)
[2021-01-24 09:47] LABS: Alanine Aminotransferase 11 IU/L (<35); Albumin 4.2 g/dL (3.5-5.0); Albumin Globulin Ratio 1.4 (1.0-2.8); Alkaline Phosphatase 54 U/L (38-126); Aspartate Aminotransferase 23 IU/L (14-36); BUN Creatinine Ratio 17.3 (6-22); Bilirubin Total 0.6 mg/dL (0.2-1.3); Blood Urea Nitrogen 14 mg/dL (7-17); Calcium 10.3 mg/dL (8.4-10.2); Carbon Dioxide 27 mmol/L (22-32); Chloride 103 mmol/L (98-107); Estimated Glomerular Filt Rate > 60.0 mL/min (>60); Glucose 93 mg/dL (80-110); HEMOLYSIS < 15 (0-50); Potassium 4.3 mmol/L (3.4-5.1); Sodium 136 mmol/L (137-145); Total Protein 7.2 g/dL (6.3-8.2)
[2021-01-24 10:03] LABS: Free T3, Triiodothyronine Free 3.91 pg/mL (2.77-5.27); Free T4, Direct Thyroxine 1.76 ng/dL (0.78-2.19)
[2021-01-24 10:17] LABS: Thyroid Stimulating Hormone 0.696 uIU/mL (0.47-4.68)
== END ==
PROVIDERS: Internal Medicine; Family Provider Family Medicine; PCP Family Medicine; Referring Provider Family Medicine; Visit Provider Family Medicine
DX: C85.90 Non-Hodgkin lymphoma, unspecified, unspecified site (principal); E03.9 Hypothyroidism, unspecified
CPT/HCPCS: 36415; 80053; 83615; 84439; 84443; 84481; 85025

== ENCOUNTER → 2021-06-30 07:39 | Outpatient (CLI) | payer MEDICARE, OTHER, SELFPAY ==
[2021-06-30 09:16] LABS: Alanine Aminotransferase 11 IU/L (<35); Albumin 4.2 g/dL (3.5-5.0); Albumin Globulin Ratio 1.2 (1.0-2.8); Alkaline Phosphatase 56 U/L (38-126); Aspartate Aminotransferase 25 IU/L (14-36); BUN Creatinine Ratio 19.5 (6-22); Bilirubin Total 0.4 mg/dL (0.2-1.3); Blood Urea Nitrogen 16 mg/dL (7-17); Calcium 9.9 mg/dL (8.4-10.2); Carbon Dioxide 26 mmol/L (22-32); Chloride 102 mmol/L (98-107); Cholesterol 249 mg/dL (140-199); Estimated Glomerular Filt Rate > 60.0 mL/min (>60); Globulin 3.5 g/dL (1.7-4.1); Glucose 89 mg/dL (80-110); HDL Cholesterol 103 mg/dL (40-60); HEMOLYSIS < 15 (0-50); LDL Cholesterol Calculated 135 mg/dL (<100); Sodium 134 mmol/L (137-145); Total Protein 7.7 g/dL (6.3-8.2); Triglycerides 54 mg/dL (35-150)
[2021-06-30 09:47] LABS: TSH w/ Reflex to FT4 1.88 uIU/mL (0.47-4.68)
== END ==
PROVIDERS: Family Provider Family Medicine; PCP Family Medicine; Referring Provider Family Medicine; Visit Provider Family Medicine
DX: E78.2 Mixed hyperlipidemia (principal); E03.9 Hypothyroidism, unspecified; C85.80 Other specified types of non-Hodgkin lymphoma, unspecified site
CPT/HCPCS: 36415; 80053; 80061; 84443

== ENCOUNTER → 2022-01-16 16:10 | Outpatient (CLI) | payer MEDICARE, OTHER, SELFPAY ==
--- NOTE | 2022-01-16 16:12 | DI.RAD.S_ITS ---
PROCEDURE: XR CALCANEOUS RT MIN 2V INDICATIONS: eval R heel pain TECHNIQUE: Two views of the calcaneus were acquired. COMPARISON: None. FINDINGS: Bones: No definite acute fractures or dislocations. No suspicious bony lesions. Soft tissues: No suspicious calcifications. Achilles tendon appears normal. IMPRESSION: No acute osseous abnormality. If symptoms persist, follow-up radiographs and/or CT may be helpful for further evaluation. Dictated by: Fady Calero M.D. on 01/16/2022 at 17:20 Approved by: Fady Calero M.D. on 01/16/2022 at 17:22
== END ==
PROVIDERS: Family Provider Family Medicine; PCP Family Medicine; Referring Provider Registered Nurse Diabetes Educator; Visit Provider Registered Nurse Diabetes Educator
DX: M79.671 Pain in right foot (principal)
CPT/HCPCS: 73650

== ENCOUNTER → 2022-04-24 13:31 | Outpatient (CLI) | payer MEDICARE, OTHER, SELFPAY ==
--- NOTE | 2022-04-24 | DI.MG.S_ITS ---
BILATERAL DIGITAL SCREENING MAMMOGRAM 3D/2D WITH CAD: 04/24/2022 CLINICAL: Routine screening. Family history of breast cancer. Comparison is made to exams dated: 07/29/2020 mammogram, 05/14/2017 mammogram, and 04/12/2015 mammogram - [facility]. Both breasts are heterogeneously dense, which may obscure small masses (category c / 51-75% glandular tissue). Current study was also evaluated with a Computer Aided Detection (CAD) system. No significant masses, calcifications, or other findings are seen in either breast. There has been no significant interval change. IMPRESSION: NEGATIVE There is no mammographic evidence of malignancy. A 1 year screening mammogram is recommended. Based on the Tyrer Cuzick model (a risk assessment model) the patient's lifetime risk is 8.2% and her 10 year risk is 0.0%. According to the ACR, ACS, and NCCN guidelines, an annual breast MRI exam along with mammogram is recommended if the patient's lifetime risk is 20% or greater. This exam was interpreted at Station ID: [id number]. NOTE: For mammograms, a report in lay terms will be sent to the patient. Approximately 15% of breast malignancies will not be visualized mammographically. In the management of a palpable breast mass, a negative mammogram must not discourage biopsy of a clinically suspicious lesion. Electronically Signed By: Alejandro bean/della:04/24/2022 15:08:46 letter sent: Normal Exam ACR BI-RADS Category 1: Negative 3341F
== END ==
PROVIDERS: Family Provider Family Medicine; PCP Family Medicine; Referring Provider Family Medicine; Visit Provider Family Medicine
DX: Z12.31 Encounter for screening mammogram for malignant neoplasm of breast (principal); Z80.3 Family history of malignant neoplasm of breast
CPT/HCPCS: 77063; 77067

== ENCOUNTER → 2022-08-12 07:50 | Outpatient (CLI) | payer MEDICARE, OTHER, SELFPAY ==
[2022-08-12 10:45] LABS: Cholesterol 240 mg/dL (140-199); HDL Cholesterol 90 mg/dL (40-60); LDL Cholesterol Calculated 139 mg/dL (<100); Triglycerides 54 mg/dL (35-150)
[2022-08-12 11:05] LABS: Free T4, Direct Thyroxine 1.53 ng/dL (0.78-2.19)
[2022-08-12 11:18] LABS: Thyroid Stimulating Hormone 0.405 uIU/mL (0.47-4.68)
== END ==
PROVIDERS: Family Provider Family Medicine; PCP Family Medicine; Referring Provider Family Medicine; Visit Provider Family Medicine
DX: E78.5 Hyperlipidemia, unspecified (principal); E04.1 Nontoxic single thyroid nodule
CPT/HCPCS: 36415; 80061; 84439; 84443; 84481

== ENCOUNTER → 2023-02-17 11:20 | Outpatient (CLI) | payer MEDICARE, OTHER, SELFPAY ==
[2023-02-17 12:15] LABS: Add Manual Diff / Slide Review NO; Basophils Absolute Auto 0 /uL (0-100); Basophils Percent Auto 0.5 % (0-2); Eosinophils Absolute Auto 0 /uL (0-450); Eosinophils Percent Auto 0.8 % (2-4); Hematocrit 35.7 % (36-46); Hemoglobin 11.9 g/dL (12.0-16.0); Lymphocytes Absolute Auto 1500 /uL (1100-4500); Lymphocytes Percent Auto 39.5 % (25-40); Mean Corpuscular HGB Conc 33.4 % (30-36); Mean Corpuscular Hemoglobin 30.3 PG (26-34); Mean Corpuscular Volume 90.8 fL (80-100); Monocytes Absolute Auto 400 /uL (0-900); Neutrophils Absolute Auto 1900 /uL (1500-7000); Neutrophils Percent Auto 48.2 % (50-75); Platelet Count 159 X10^3/uL (150-400); Red Blood Cell Count 3.93 X10^6/uL (4.0-5.2); White Blood Cell Count 3.9 X10^3/uL (4.5-11.0)
[2023-02-17 12:51] LABS: Alanine Aminotransferase 12 IU/L (<35); Albumin 4.4 g/dL (3.5-5.0); Albumin Globulin Ratio 1.2 (1.0-2.8); Alkaline Phosphatase 61 U/L (38-126); Aspartate Aminotransferase 24 IU/L (14-36); BUN Creatinine Ratio 18.8 (6-22); Bilirubin Total 0.8 mg/dL (0.2-1.3); Blood Urea Nitrogen 16 mg/dL (7-17); Carbon Dioxide 26 mmol/L (22-32); Chloride 105 mmol/L (98-107); Estimated Glomerular Filt Rate > 60 mL/min (>60); Globulin 3.6 g/dL (1.7-4.1); Glucose 90 mg/dL (80-110); HEMOLYSIS < 15 (0-50); Potassium 4.1 mmol/L (3.4-5.1); Sodium 136 mmol/L (137-145)
[2023-02-17 13:02] LABS: Free T3, Triiodothyronine Free 3.01 pg/mL (2.77-5.27); Free T4, Direct Thyroxine 1.76 ng/dL (0.78-2.19)
[2023-02-17 13:15] LABS: Thyroid Stimulating Hormone 0.394 uIU/mL (0.47-4.68)
[2023-02-20 12:29] LABS: Parathyroid Hormone Int 97 pg/mL (15-65)
[2023-03-01 12:47] LABS: Triiodothyronine T3 Reverse 20.8
== END ==
PROVIDERS: Family Provider Family Medicine; PCP Family Medicine; Referring Provider Family Medicine; Visit Provider Family Medicine
DX: Z86.19 Personal history of other infectious and parasitic diseases (principal); E03.9 Hypothyroidism, unspecified; K21.9 Gastro-esophageal reflux disease without esophagitis; R63.4 Abnormal weight loss; R68.81 Early satiety; B18.2 Chronic viral hepatitis C; E83.52 Hypercalcemia
CPT/HCPCS: 36415; 80053; 83970; 84439; 84443; 84481; 84482; 85025; 87522

== ENCOUNTER → 2023-02-26 08:59 | Outpatient (CLI) | payer MEDICARE, OTHER, SELFPAY ==
--- NOTE | 2023-02-26 09:00 | DI.CT.S_ITS ---
PROCEDURE: CT ABDOMEN WO CON INDICATIONS: early satiety, unintentional weight loss, hx lymphoma TECHNIQUE: After the administration of oral contrast, 5 mm thick sections acquired from the diaphragms to the iliac crests. 5 mm coronal and sagittal reformats were then performed. For radiation dose reduction, the following was used: automated exposure control, adjustment of mA and/or kV according to patient size. COMPARISON: [facility], CT, CHEST/ABDOMEN WITH CONTRAST, 02/17/2016, 10:37. FINDINGS: Image quality: Excellent. Lung bases: Lung bases are clear. Heart size is normal. Solid organs: Liver is normal in size. Gallbladder is unremarkable. Pancreas is normal in contours. Spleen is normal in size. No adrenal nodules. 5 mm calculus is seen at the superior pole of left kidney (800 Hounsfield units) a 3 mm calculus is seen at the inferior pole of the right kidney. No ureteral calculus or hydronephrosis. Kidneys are symmetric in size. Peritoneum and bowel: Moderate colonic stool. Questionable gastric wall thickening in the fundus versus undigested food material. Bowel loops demonstrate normal wall thickness and caliber. No free fluid or air. Nodes and vessels: No retroperitoneal or mesenteric adenopathy by size criteria. Aorta and inferior vena cava are normal in size. Bones: No suspicious bony lesions. No vertebral body compression fractures. Postsurgical changes are seen in the lower lumbar spine. Mild chronic compression fracture of T12. Miscellaneous: No ventral hernias. IMPRESSION: 1. Possible bowel wall thickening in the gastric fundus versus undigested food material. Moderate colonic stool. 2. No acute inflammatory process is seen in the upper abdomen. 3. No bulky lymphadenopathy. 4. Bilateral nonobstructing renal calculi. No hydronephrosis. Approved by: Fady Gallo M.D. on 02/26/2023 at 23:06
== END ==
PROVIDERS: Family Provider Family Medicine; PCP Family Medicine; Referring Provider Family Medicine; Visit Provider Family Medicine
DX: N20.0 Calculus of kidney (principal); K21.9 Gastro-esophageal reflux disease without esophagitis; E03.9 Hypothyroidism, unspecified; R63.4 Abnormal weight loss; R68.81 Early satiety; Z86.19 Personal history of other infectious and parasitic diseases
CPT/HCPCS: 74150

== ENCOUNTER → 2023-03-26 10:27 | Outpatient (CLI) | payer MEDICARE, OTHER, SELFPAY ==
--- NOTE | 2023-03-26 | DI.RAD.S_ITS ---
Bone Density Report Name: KRISTYN CHEATHAM Age: 78 Sex: Female Ethnicity: White Date of : 1945 Indication: postmenopausal osteoporosis; Referring Provider: CALIN WALLACE MD Study: Bone densitometry was performed. Exam Date: March 26, 2023 Accession number: [id number] Bone Density: Region BMD T-score Z-score Classification AP Spine(L1, L2, L3) 0.822 -1.8 0.7 Osteopenia Femoral Neck (Left) 0.561 -2.6 -0.4 Osteoporosis Total Hip (Left) 0.593 -2.9 -1.0 Osteoporosis Femoral Neck (Right) 0.576 -2.5 -0.3 Osteoporosis Total Hip (Right) 0.595 -2.8 -0.9 Osteoporosis Total Hip Mean 0.594 -2.9 -1.0 Osteoporosis World Health Organization criteria for BMD impression classify patients as: Normal (T-score at or above -1.0), Osteopenia (T-score between -1.0 and -2.5), or Osteoporosis (T-score at or below -2.5). 10-year Fracture Risk: FRAX not reported because: Some T-score for Spine Total or Hip Total or Femoral Neck at or below -2.5 Previous Exams: -- Region Exam Age BMD T-score BMD Change BMD Change Date g/cm2 vs Baseline vs Previous -- AP Spine (L1-L3) 03/26/2023 78 0.822 -1.8 -0.185 (-18.4%)# 0.033 (4.2%)# 07/29/2020 75 0.789 -2.1 -0.218 (-21.6%)* -0.006 (-0.7%) 05/14/2017 72 0.795 -2.0 -0.212 (-21.1%)* -0.077 (-8.8%)* 03/14/2015 70 0.872 -1.3 -0.136 (-13.5%)* -0.077 (-8.1%)* 11/26/2011 66 0.949 -0.6 -0.059 (-5.8%)* -0.059 (-5.8%)* 03/24/2007 62 1.007 -0.1 Total Hip(Left) 03/26/2023 78 0.593 -2.9 -0.203 (-25.5%)# -0.038 (-6.0%)# 07/29/2020 75 0.631 -2.6 -0.165 (-20.7%)* -0.002 (-0.3%) 05/14/2017 72 0.632 -2.5 -0.163 (-20.5%)* -0.029 (-4.4%)* 03/14/2015 70 0.661 -2.3 -0.134 (-16.8%)* -0.052 (-7.2%)* 11/26/2011 66 0.713 -1.9 -0.082 (-10.3%)* -0.082 (-10.3%)* 03/24/2007 62 0.795 -1.2 Total Hip(Right) 03/26/2023 78 0.595 -2.8 -0.235 (-28.3%)# -0.023 (-3.8%)# 07/29/2020 75 0.619 -2.6 -0.212 (-25.5%)* -0.013 (-2.0%) 05/14/2017 72 0.631 -2.5 -0.199 (-24.0%)* -0.033 (-5.0%)* 03/14/2015 70 0.665 -2.3 -0.166 (-19.9%)* -0.069 (-9.4%)* 11/26/2011 66 0.733 -1.7 -0.097 (-11.7%)* -0.097 (-11.7%)* 03/24/2007 62 0.831 -0.9 -- *Denotes significance at 95% confidence level, LSC for AP Spine = 0.022 g/cm2, LSC for Total Hip = 0.027 g/cm2 Rate of change results reflect vertebral levels common to all scans # Denotes dissimilar scan types or analysis methods Impression: The patient has osteoporosis, based on the Left Total Hip T-score. No significant bone loss was observed. Discussion: INCREASED RISK OF FRACTURE. BONE DENSITY IS UNDESIRABLY LOW AT ONE OR MORE SKELETAL SITES, CONSISTENT WITH POSTMENOPAUSAL OSTEOPOROSIS. This patient's lowest T-score meets the World Health Organization's (WHO) criteria for osteoporosis at one or more sites (T-score -2.5 or below). In untreated patients, the risk of osteoporotic fracture increases approximately two-fold for each 1.0 SD decrease in T-score. Low bone density is not the only risk factor for fracture; also consider factors such as patient's age, frailty or poor health, risk of falling, risk of injury, previous osteoporotic fracture, family history of osteoporosis, cigarette smoking, low body weight, etc. Not everyone with low bone mineral density has osteoporosis; osteomalacia and other metabolic bone disorders should also be considered. Patients who have osteoporosis should be evaluated for specific diseases and conditions (secondary causes) that may cause or contribute to bone loss. The [place] Association [employer] Endocrinologists (AACE) and National Osteoporosis Foundation (NOF) recommend pharmacologic intervention for all postmenopausal women whose T-score is in this range. The patient should follow a healthful lifestyle (good nutrition with adequate calcium and vitamin D, and appropriate weight-bearing exercise). Follow-Up: Consider a repeat BMD and Vertebral Fracture Assessment (VFA) exam in 2 years or sooner if medically necessary, to reassess this patient's status. Reported by: CARLTON CURRY M.D. on 03/26/2023 11:48:00 AM.
[2023-03-26 11:56] LABS: Vitamin D 25 Hydroxy (D3) 43.2 ng/mL (30.0-100.0)
[2023-03-26 15:04] LABS: Calcium 24 Hour Urine 130 mg/day (100-300); Calcium Urine Random 5.2 mg/dL; Collection Time Urine 24 Hours; Total Volume Urine 2500 mL
== END ==
PROVIDERS: Family Provider Family Medicine; PCP Family Medicine; Referring Provider Otolaryngology; Visit Provider Otolaryngology
DX: M81.0 Age-related osteoporosis without current pathological fracture (principal); E21.3 Hyperparathyroidism, unspecified
CPT/HCPCS: 36415; 77080; 82306; 82340

== ENCOUNTER → 2023-06-07 06:54 | Outpatient (CLI) | payer MEDICARE, OTHER, SELFPAY ==
[2023-06-09 08:10] LABS: Interpretation Negative (Negative)
== END ==
LOC: LAB 06:56
PROVIDERS: Family Provider Family Medicine; PCP Family Medicine; Referring Provider Physician Assistant; Visit Provider Physician Assistant
DX: K29.70 Gastritis, unspecified, without bleeding (principal)
CPT/HCPCS: 83013

== ENCOUNTER → 2023-07-23 11:48 | Outpatient (CLI) | payer MEDICARE, OTHER, SELFPAY | PROVIDERS: Family Provider Family Medicine; PCP Family Medicine; Visit Provider Family Medicine | DX: N39.0 Urinary tract infection, site not specified (principal) | CPT/HCPCS: 87086 ==

== ENCOUNTER → 2023-08-05 07:11 | Outpatient (CLI) | payer MEDICARE, OTHER, SELFPAY ==
[2023-08-05 09:03] LABS: Add Manual Diff / Slide Review NO; Basophils Absolute Auto 0 /uL (0-100); Basophils Percent Auto 0.8 % (0-2); Eosinophils Absolute Auto 100 /uL (0-450); Eosinophils Percent Auto 1.6 % (2-4); Hemoglobin 10.8 g/dL (12.0-16.0); Lymphocytes Absolute Auto 1400 /uL (1100-4500); Lymphocytes Percent Auto 43.6 % (25-40); Mean Corpuscular HGB Conc 33.8 % (30-36); Mean Corpuscular Hemoglobin 31.1 PG (26-34); Mean Corpuscular Volume 91.8 fL (80-100); Monocytes Absolute Auto 400 /uL (0-900); Neutrophils Absolute Auto 1300 /uL (1500-7000); Platelet Count 164 X10^3/uL (150-400); Red Blood Cell Count 3.48 X10^6/uL (4.0-5.2); Red Cell Distribution Width 13.8 % (11.6-14.8); White Blood Cell Count 3.2 X10^3/uL (4.5-11.0)
[2023-08-05 09:04] LABS: Hemoglobin A1C% w Est Avg Glu 5.8 % (4.0-6.0)
[2023-08-05 09:15] LABS: Alanine Aminotransferase 11 IU/L (<35); Albumin 4.1 g/dL (3.5-5.0); Albumin Globulin Ratio 1.3 (1.0-2.8); Alkaline Phosphatase 61 U/L (38-126); Aspartate Aminotransferase 24 IU/L (14-36); BUN Creatinine Ratio 24.4 (6-22); Bilirubin Total 0.6 mg/dL (0.2-1.3); Blood Urea Nitrogen 19 mg/dL (7-17); Calcium 10.1 mg/dL (8.4-10.2); Carbon Dioxide 25 mmol/L (22-32); Chloride 105 mmol/L (98-107); Cholesterol 225 mg/dL (140-199); Estimated Glomerular Filt Rate > 60 mL/min (>60); Globulin 3.1 g/dL (1.7-4.1); Glucose 86 mg/dL (80-110); HDL Cholesterol 104 mg/dL (40-60); HEMOLYSIS < 15 (0-50); LDL Cholesterol Calculated 111 mg/dL (<100); Potassium 4.3 mmol/L (3.4-5.1); Sodium 137 mmol/L (137-145); Total Protein 7.2 g/dL (6.3-8.2); Triglycerides 50 mg/dL (35-150)
[2023-08-05 09:18] LABS: High Sensitivity CRP - Cardiac < 0.3 mg/L (1.0-3.0)
== END ==
PROVIDERS: Family Provider Family Medicine; PCP Family Medicine; Referring Provider Family Medicine; Visit Provider Family Medicine
DX: Z01.812 Encounter for preprocedural laboratory examination (principal); E21.3 Hyperparathyroidism, unspecified; R73.9 Hyperglycemia, unspecified; E78.5 Hyperlipidemia, unspecified; E83.52 Hypercalcemia; E04.1 Nontoxic single thyroid nodule; D64.9 Anemia, unspecified
CPT/HCPCS: 36415; 80053; 80061; 83036; 85025; 86140

== ENCOUNTER → 2023-08-12 11:51 | Outpatient (CLI) | payer MEDICARE, OTHER, SELFPAY | PROVIDERS: Family Provider Family Medicine; PCP Family Medicine; Referring Provider Family Medicine; Visit Provider Family Medicine | DX: Z01.812 Encounter for preprocedural laboratory examination (principal) | CPT/HCPCS: 93005; 93010 ==

== ENCOUNTER → 2023-08-25 17:36 | Outpatient (CLI) | payer MEDICARE, OTHER, SELFPAY ==
[2023-08-25 18:02] LABS: Appearance Urine UA CLEAR; Bilirubin Urine UA NEGATIVE (NEGATIVE); Color Urine UA YELLOW; Glucose Urine UA NEGATIVE (Negative); Ketones Urine UA TRACE (NEGATIVE); Leukocyte Esterase Urine UA NEGATIVE (NEGATIVE); Nitrite Urine UA NEGATIVE (Negative); Occult Blood Urine UA 1+ (Negative); Protein Urine UA NEGATIVE (Negative); Specific Gravity Urine UA 1.015 (1.000-1.035); Urobilinogen Urine UA 0.2 E.U./dL (0.2)
[2023-08-25 18:12] LABS: Bacteria Urine Occasional (0-1); Culture Indicated Urine Cult Not Indicated; RBC Urine 1-5/HPF (0-5/HPF); Squamous Epithelial Cell Urine None Seen (0-5/HPF); Urine Volume 10mL (spun); WBC Urine 0-1/HPF (0-5/HPF)
== END ==
PROVIDERS: Family Provider Family Medicine; PCP Family Medicine; Referring Provider Family Medicine; Visit Provider Family Medicine
DX: N39.0 Urinary tract infection, site not specified (principal)
CPT/HCPCS: 81001

== ENCOUNTER → 2023-10-19 07:00 | Outpatient (CLI) | payer MEDICARE, OTHER, SELFPAY ==
[2023-10-19 08:00] LABS: Add Manual Diff / Slide Review NO; Basophils Absolute Auto 0 /uL (0-100); Basophils Percent Auto 0.6 % (0-2); Eosinophils Absolute Auto 0 /uL (0-450); Eosinophils Percent Auto 1.2 % (2-4); Hematocrit 32.9 % (36-46); Lymphocytes Absolute Auto 1700 /uL (1100-4500); Lymphocytes Percent Auto 45.5 % (25-40); Mean Corpuscular HGB Conc 33.4 % (30-36); Mean Corpuscular Hemoglobin 30.8 PG (26-34); Monocytes Absolute Auto 500 /uL (0-900); Monocytes Percent Auto 12.9 % (3-14); Neutrophils Absolute Auto 1500 /uL (1500-7000); Neutrophils Percent Auto 39.8 % (50-75); Platelet Count 155 X10^3/uL (150-400); Red Blood Cell Count 3.57 X10^6/uL (4.0-5.2); Red Cell Distribution Width 14.2 % (11.6-14.8); White Blood Cell Count 3.8 X10^3/uL (4.5-11.0)
[2023-10-19 08:23] LABS: HEMOLYSIS < 15 (0-50); Iron 97 ug/dL (37-170)
[2023-10-19 08:35] LABS: Percent Iron Saturation 35 % (15-50); Total Iron Binding Capacity 276 ug/dL (265-497); Transferrin 216 mg/dL (206-381)
== END ==
PROVIDERS: Family Provider Family Medicine; PCP Family Medicine; Referring Provider Anesthesiology; Visit Provider Anesthesiology
DX: E21.3 Hyperparathyroidism, unspecified (principal); D64.9 Anemia, unspecified; Z01.818 Encounter for other preprocedural examination
CPT/HCPCS: 36415; 83540; 83550; 85025

== ENCOUNTER → 2023-10-27 07:28 | Outpatient (CLI) | payer MEDICARE, OTHER, SELFPAY ==
[2023-10-27 08:26] LABS: Appearance Urine UA CLEAR; Bilirubin Urine UA NEGATIVE (NEGATIVE); Color Urine UA YELLOW; Glucose Urine UA NEGATIVE (Negative); Ketones Urine UA NEGATIVE (NEGATIVE); Leukocyte Esterase Urine UA 3+ (NEGATIVE); Nitrite Urine UA NEGATIVE (Negative); Occult Blood Urine UA 3+ (Negative); Protein Urine UA NEGATIVE (Negative); Specific Gravity Urine UA <=1.005 (1.000-1.035); Urobilinogen Urine UA 0.2 E.U./dL (0.2); pH Urine UA 5.5 (4.5-8.0)
[2023-10-27 08:27] LABS: Urine Volume 10mL (spun)
[2023-10-27 08:28] LABS: Bacteria Urine None Seen; Culture Indicated Urine Specimen Cultured; RBC Urine 5-10/HPF (0-5/HPF); Squamous Epithelial Cell Urine 1-5 /HPF (0-5/HPF); WBC Urine 10-30/HPF (0-5/HPF)
[2023-10-27 09:04] LABS: Ferritin 20 ng/mL (11-264)
== END ==
LOC: LAB 07:30
PROVIDERS: Family Provider Family Medicine; PCP Family Medicine; Referring Provider Family Medicine; Visit Provider Family Medicine
DX: D64.9 Anemia, unspecified (principal); R79.0 Abnormal level of blood mineral; R31.0 Gross hematuria; N39.0 Urinary tract infection, site not specified
CPT/HCPCS: 36415; 81001; 82728; 87086

== ENCOUNTER → 2024-01-04 09:22 | Outpatient (CLI) | payer MEDICARE, OTHER, SELFPAY ==
--- NOTE | 2024-01-04 09:22 | DI.MG.S_ITS ---
BILATERAL DIGITAL SCREENING MAMMOGRAM 3D/2D WITH CAD: 01/04/2024 CLINICAL: Routine screening. Family history of breast cancer. Comparison is made to exams dated: 04/24/2022 mammogram, 07/29/2020 mammogram, and 05/14/2017 mammogram - [facility]. The breasts are heterogeneously dense, which may obscure small masses (category c / 51-75% glandular tissue). Current study was also evaluated with a Computer Aided Detection (CAD) system. No significant masses, calcifications, or other findings are seen in either breast. There has been no significant interval change. IMPRESSION: NEGATIVE There is no mammographic evidence of malignancy. A 1 year screening mammogram is recommended. Based on the Tyrer Cuzick model (a risk assessment model) the patient's lifetime risk is 7.4% and her 10 year risk is 0.0%. According to the ACR, ACS, and NCCN guidelines, an annual breast MRI exam along with mammogram is recommended if the patient's lifetime risk is 20% or greater. This exam was interpreted at Station ID: [id number]. NOTE: For mammograms, a report in lay terms will be sent to the patient. Approximately 15% of breast malignancies will not be visualized mammographically. In the management of a palpable breast mass, a negative mammogram must not discourage biopsy of a clinically suspicious lesion. Electronically Signed By: Quiana kurtz/della:01/04/2024 18:15:06 letter sent: Normal Exam ACR BI-RADS Category 1: Negative
== END ==
PROVIDERS: Family Provider Family Medicine; PCP Family Medicine; Referring Provider Family Medicine; Visit Provider Family Medicine
DX: Z12.31 Encounter for screening mammogram for malignant neoplasm of breast (principal); Z80.3 Family history of malignant neoplasm of breast; R92.333 Mammographic heterogeneous density, bilateral breasts
CPT/HCPCS: 77063; 77067

== ENCOUNTER → 2024-03-01 07:37 | Outpatient (CLI) | payer MEDICARE, OTHER, SELFPAY ==
[2024-03-01 08:42] LABS: Add Manual Diff / Slide Review NO; Basophils Absolute Auto 0 /uL (0-100); Basophils Percent Auto 0.9 % (0-2); Eosinophils Absolute Auto 0 /uL (0-450); Eosinophils Percent Auto 1.3 % (2-4); Hematocrit 35.7 % (36-46); Hemoglobin 11.6 g/dL (12.0-16.0); Lymphocytes Absolute Auto 1200 /uL (1100-4500); Lymphocytes Percent Auto 40.7 % (25-40); Mean Corpuscular HGB Conc 32.4 % (30-36); Mean Corpuscular Hemoglobin 30.5 PG (26-34); Monocytes Absolute Auto 400 /uL (0-900); Monocytes Percent Auto 13.5 % (3-14); Neutrophils Absolute Auto 1300 /uL (1500-7000); Neutrophils Percent Auto 43.6 % (50-75); Platelet Count 158 X10^3/uL (150-400); Red Blood Cell Count 3.79 X10^6/uL (4.0-5.2); Red Cell Distribution Width 13.8 % (11.6-14.8)
[2024-03-01 08:59] LABS: BUN Creatinine Ratio 20.5 (6-22); Blood Urea Nitrogen 16 mg/dL (7-17); Calcium 8.9 mg/dL (8.4-10.2); Carbon Dioxide 25 mmol/L (22-32); Chloride 101 mmol/L (98-107); Cholesterol 265 mg/dL (140-199); Estimated Glomerular Filt Rate > 60 mL/min (>60); Glucose 86 mg/dL (80-110); HEMOLYSIS < 15 (0-50); Potassium 4.1 mmol/L (3.4-5.1); Sodium 134 mmol/L (137-145); Triglycerides 88 mg/dL (35-150)
[2024-03-01 09:01] LABS: Appearance Urine UA CLEAR; Bilirubin Urine UA NEGATIVE (NEGATIVE); Color Urine UA YELLOW; Glucose Urine UA NEGATIVE (Negative); Ketones Urine UA NEGATIVE (NEGATIVE); Leukocyte Esterase Urine UA TRACE (NEGATIVE); Nitrite Urine UA NEGATIVE (Negative); Occult Blood Urine UA 3+ (Negative); Protein Urine UA NEGATIVE (Negative); Specific Gravity Urine UA <=1.005 (1.000-1.035); Urobilinogen Urine UA 0.2 E.U./dL (0.2)
[2024-03-01 09:02] LABS: Urine Volume 10mL (spun)
[2024-03-01 09:05] LABS: Bacteria Urine None Seen; Culture Indicated Urine Cult Not Indicated; High Sensitivity CRP - Cardiac 0.4 mg/L (1.0-3.0); RBC Urine 5-10/HPF (0-5/HPF); Squamous Epithelial Cell Urine None Seen (0-5/HPF); WBC Urine 0-1/HPF (0-5/HPF)
[2024-03-01 09:07] LABS: HDL Cholesterol 112 mg/dL (40-60); LDL Cholesterol Calculated 135 mg/dL (<100)
[2024-03-01 09:30] LABS: TSH w/ Reflex to FT4 1.01 uIU/mL (0.47-4.68)
== END ==
PROVIDERS: Family Provider Family Medicine; PCP Family Medicine; Referring Provider Family Medicine; Visit Provider Family Medicine
DX: E21.3 Hyperparathyroidism, unspecified (principal); E03.9 Hypothyroidism, unspecified; E83.52 Hypercalcemia; K21.9 Gastro-esophageal reflux disease without esophagitis; C85.80 Other specified types of non-Hodgkin lymphoma, unspecified site; D64.9 Anemia, unspecified; C83.30 Diffuse large B-cell lymphoma, unspecified site; E04.1 Nontoxic single thyroid nodule; R31.9 Hematuria, unspecified; E78.2 Mixed hyperlipidemia
CPT/HCPCS: 36415; 80048; 80061; 81001; 84443; 85025; 86140

== ENCOUNTER 2024-03-10 19:54 | Emergency (ER) | payer MEDICARE, OTHER, SELFPAY ==
[2024-03-10 19:57] VITALS: BP 151/75; PULSE 83; RESP 16; TEMP 36.7; O2SAT 99; BMI 20.3
--- NOTE | 2024-03-10 20:07 | DI.RAD.S_ITS ---
PROCEDURE: XR HIP W PEL IF DONE BILAT 2V INDICATIONS: Fall yesterday onto R hip TECHNIQUE: AP pelvis with lateral view(s) of the bilateral hip(s). COMPARISON: None. FINDINGS: Bones: No fractures or dislocations. Moderate to severe bilateral hip joint osteoarthritic changes are seen worse on the left side. No evidence of avascular necrosis of femoral heads. Pelvic ring appears intact. No suspicious bony lesions. Postsurgical changes are seen in visualized lower lumbar spine. Soft tissues: The visualized bowel gas pattern is normal. No suspicious soft tissue calcifications. IMPRESSION: No gross acute right hip fracture or dislocation. Left worse than right bilateral hip joint osteoarthritis. No evidence of avascular necrosis. Dictated by: Twan Sousa M.D. on 03/10/2024 at 20:28 Approved by: Twan Sousa M.D. on 03/10/2024 at 20:29
--- NOTE | 2024-03-10 21:09 | DI.CT.S_ITS ---
PROCEDURE: CT PEL WO CON INDICATIONS: R hip pain, neg XR TECHNIQUE: Noncontrast 3 mm axial sections acquired through the bony pelvis, with coronal and sagittal reformatting. COMPARISON: [facility], CR, XR HIP W PEL IF DONE BILAT 2V, 03/10/2024, 20:05. FINDINGS: Image quality: Excellent. Bones: Postfusion changes are noted in lower lumbar spine at L4-5 level. No gross hardware loosening or failure is seen. Grade 1 anterolisthesis of L4 on L5 is seen. No acute vertebral body compression fracture. Moderate bilateral hip joint osteoarthritic changes are seen with joint space narrowing, subchondral sclerosis and marginal osteophyte formation. No displaced pelvic or hip fracture. No hip dislocation. No evidence of avascular necrosis of femoral head. Subtle sclerosis through right femoral neck is seen with subtle radiolucency concerning for stress fracture involving right femoral neck given patient's symptom of right hip pain. No suspicious bony lesions. Soft tissues: There is no pelvic free fluid or free air. No abnormal bowel wall thickening. No gross bladder wall thickening. No discrete soft tissue mass or drainable fluid collection is seen. Suggestion of small bilateral joint effusion. No calcified intra-articular loose bodies. No abnormal soft tissue calcifications. No definite pelvic lymphadenopathy. IMPRESSION: 1. Moderate bilateral hip joint osteoarthritis. No acute displaced pelvic or hip fracture. No hip dislocation. No evidence of avascular necrosis of femoral head. 2. Very subtle abnormal density involving subcapital region of right femoral neck, incomplete fracture or stress fracture cannot be entirely excluded. This can be further evaluated with MRI of hip if there is no contraindication. 3. No pelvic free fluid or free air. No abnormal drainable fluid collection or soft tissue mass. No abnormal soft tissue calcifications. Suggestion of small joint effusion without calcified intra-articular loose bodies. Dictated by: Twan Sousa M.D. on 03/10/2024 at 21:45 Approved by: Twan Sousa M.D. on 03/10/2024 at 21:50
[2024-03-10 21:30] VITALS: BP 141/76; PULSE 81; RESP 18; O2SAT 94
[2024-03-10 22:00] VITALS: BP 140/80; PULSE 76; RESP 16; O2SAT 95
--- NOTE | 2024-03-10 22:24 | ED_ITS ---
HPI - Extremity Injury (Lower) General Chief Complaint: Extremity Injury, Lower Stated Complaint: acute hip px Time Seen by Provider: 03/10/24 21:09 Source: patient Mode of arrival: Family Vehicle History of Present Illness HPI Narrative: 79-year-old female had ground level fall at home, complained of left-sided hip pain, minor right-sided hip pain. No dislocation suspected. She has not take blood thinners. She had not hit her head. She had no loss of consciousness. She denies pain to her neck upper spine mid back low back. No pain to her chest abdomen and pelvis. No nausea or vomiting. She is able to bear weight on her right hip and move her right hip, but has discomfort moving her left hip. She took half tablet of naproxen earlier today for the pain, no other treatments tried. Related Data Home Medications Medication Instructions Recorded Confirmed cholecalciferol (vitamin D3) 50 2,000 unit PO DAILY 10/12/17 02/28/24 mcg (2,000 unit) tablet (Vitamin D3) vitamin E 268 mg (400 unit) capsule 400 unit PO DAILY 10/12/17 02/28/24 aspirin 81 mg chewable tablet 81 mg PO DAILY 04/27/18 02/28/24 naproxen sodium 220 mg capsule 220 mg PO BID PRN Pain (Scale 03/02/19 02/28/24 Score 1-3) timolol maleate 0.5 % eye drops 1 drp EYE-RIGHT BID 08/10/22 02/28/24 turmeric (bulk) [Curcumin] miscellaneous 08/10/22 02/28/24 diphenhydramine HCl 25 mg tablet 12.5 mg PO BEDTIME PRN 02/16/23 02/28/24 (Allergy Relief (diphenhydramine)) netarsudil 0.02 %-latanoprost drp EYE-BOTH 07/23/23 02/28/24 0.005 % eye drops (Rocklatan) ferrous sulfate 325 mg (65 mg 325 mg PO DAILY 02/28/24 02/28/24 iron) tablet (Feosol) Previous Rx's Medication Instructions Recorded levothyroxine 100 mcg tablet 100 mcg PO DAILY #90 tabs 02/28/24 nortriptyline 10 mg capsule See Rx Instructions .Route 02/28/24 .COMPLEX #90 caps Allergies Allergy/AdvReac Type Severity Reaction Status Date / Time dorzolamide Allergy Intermediate itchy red Verified 02/28/24 15:53 swollen eyes levofloxacin [LEVOFLOXACIN] AdvReac Mild TENDONITIS Verified 02/28/24 15:53 Patient History Medical History (Updated 03/11/24 @ 00:13 by Cedrick Restrepo MD) Unintentional weight loss (~2022) History of hepatitis C (~2014) Chronic heel pain Hyperlipidemia Osteoporosis Thyroid nodule Tubular adenoma of colon (2013) Anemia Lumbar spinal stenosis Lymphoma, non-Hodgkin's (2008) Hepatitis C (2012) Surgical History History of oophorectomy (2009) History of hysterectomy for benign disease (1983) History of colonoscopy (2007) Family History Father Coronary artery disease Mother Dementia Social History Smoking Status: Never smoker Smoking Status: Never smoker Exam Narrative Exam Narrative: GENERAL: Well-developed patient, in mild distress. HEAD: Atraumatic. Normocephalic. EYES: Pupils equal round and reactive. Extraocular motions intact. No scleral icterus. No injection or drainage. ENT: Nose without bleeding, purulent drainage. Throat without erythema, tonsillar hypertrophy or exudate. Airway patent. NECK: Trachea midline. Non tender CARDIOVASCULAR: Regular rate and rhythm without murmurs, gallops, or rubs. RESPIRATORY: Clear to auscultation. Breath sounds equal bilaterally. No wheezes, rales, or rhonchi. GASTROINTESTINAL: Abdomen soft, non-tender, nondistended. EXTREMITIES: Left medial groin area tenderness, no bruising, no gross deformity. No tenderness to mid distal thigh, knee, foreleg. No limb length discrepancy. Right hip without anterior or trochanteric area tenderness, can flex and extend without pain. BACK: Nontender without deformity or crepitance. No flank tenderness. NEURO: AOx3. Motor functions grossly nonfocal SKIN: No rash or erythema of visible areas Initial Vital Signs Initial Vital Signs: Vital Signs Temperature 98.1 F 03/10/24 19:57 Pulse Rate 83 03/10/24 19:57 Respiratory Rate 16 03/10/24 19:57 Blood Pressure 151/75 H 03/10/24 19:57 Pulse Oximetry 99 03/10/24 19:57 Oxygen Delivery Method Room Air 03/10/24 19:57 Course Orders Ordered: ED Orders 03/10/24 20:07 XR hip w pel if done BILAT 2V Stat 03/10/24 21:09 CT pelvis wo con Stat Discontinued Medications Acetaminophen (Acetaminophen 325 Mg Tablet) 650 mg PO NOW ONE Stop: 03/11/24 00:06 Last Admin: 03/11/24 00:16 Dose: 650 mg Documented By: MERYL Naproxen (Naproxen 250 Mg Tablet) 250 mg PO NOW ONE Stop: 03/11/24 00:06 Last Admin: 03/11/24 00:17 Dose: 250 mg Documented By: MERYL Tramadol HCl (Tramadol 50 Mg Prepack) 1 bottle MISC DIRECTED ONE Stop: 03/11/24 00:06 Last Admin: 03/11/24 00:16 Dose: 1 bottle Documented By: MERYL Vital Signs Vital signs: Vital Signs - 8 hr 03/10/24 19:57 03/10/24 21:30 03/10/24 21:30 Temperature 98.1 F Pulse Rate 83 81 Respiratory Rate 16 18 Blood Pressure 151/75 H 141/76 H Pulse Oximetry 99 94 Oxygen Delivery Method Room Air Room Air 03/10/24 22:00 03/10/24 22:00 03/11/24 00:24 Temperature Pulse Rate 76 74 Respiratory Rate 16 16 Blood Pressure 140/80 141/86 H Pulse Oximetry 95 97 Oxygen Delivery Method Room Air Room Air MDM - Extremity Injury (Lower) Imaging Data CT pelvis: Radiologist's Impression: [place] [address] CT Scan Report Signed Patient: Whitley Foote MR#: [id number] : 1945 Acct:[id number] Age/Sex: 79 / F Date of Service: 03/10/24 Loc: ED Accession Number: [id number] Procedure: CT pelvis wo con Ordering Provider: Cedrick Restrepo MD PROCEDURE: CT PEL WO CON INDICATIONS: R hip pain, neg XR TECHNIQUE: Noncontrast 3 mm axial sections acquired through the bony pelvis, with coronal and sagittal reformatting. COMPARISON: [facility], CR, XR HIP W PEL IF DONE BILAT 2V, 03/10/2024, 20:05. FINDINGS: Image quality: Excellent. Bones: Postfusion changes are noted in lower lumbar spine at L4-5 level. No gross hardware loosening or failure is seen. Grade 1 anterolisthesis of L4 on L5 is seen. No acute vertebral body compression fracture. Moderate bilateral hip joint osteoarthritic changes are seen with joint space narrowing, subchondral sclerosis and marginal osteophyte formation. No displaced pelvic or hip fracture. No hip dislocation. No evidence of avascular necrosis of femoral head. Subtle sclerosis through right femoral neck is seen with subtle radiolucency concerning for stress fracture involving right femoral neck given patient's symptom of right hip pain. No suspicious bony lesions. Soft tissues: There is no pelvic free fluid or free air. No abnormal bowel wall thickening. No gross bladder wall thickening. No discrete soft tissue mass or drainable fluid collection is seen. Suggestion of small bilateral joint effusion. No calcified intra-articular loose bodies. No abnormal soft tissue calcifications. No definite pelvic lymphadenopathy. IMPRESSION: 1. Moderate bilateral hip joint osteoarthritis. No acute displaced pelvic or hip fracture. No hip dislocation. No evidence of avascular necrosis of femoral head. 2. Very subtle abnormal density involving subcapital region of right femoral neck, incomplete fracture or stress fracture cannot be entirely excluded. This can be further evaluated with MRI of hip if there is no contraindication. 3. No pelvic free fluid or free air. No abnormal drainable fluid collection or soft tissue mass. No abnormal soft tissue calcifications. Suggestion of small joint effusion without calcified intra-articular loose bodies. Dictated by: Twan Sousa M.D. on 03/10/2024 at 21:45 Approved by: Twan Sousa M.D. on 03/10/2024 at 21:50 ECG Data Interpretation: Close Pelvis CT (Signed) Twan Sousa - 03/10/24 Hip X-Ray (Signed) Twan Sousa - 03/10/24 Launch?[address] [address] XRay Report Signed Patient: Whitley Foote MR#: [id number] : 1945 Acct:[id number] Age/Sex: 79 / F Date of Service: 03/10/24 Loc: ED Accession Number: [id number] Procedure: XR hip w pel if done BILAT 2V Ordering Provider: Cedrick Restrepo MD PROCEDURE: XR HIP W PEL IF DONE BILAT 2V INDICATIONS: Fall yesterday onto R hip TECHNIQUE: AP pelvis with lateral view(s) of the bilateral hip(s). COMPARISON: None. FINDINGS: Bones: No fractures or dislocations. Moderate to severe bilateral hip joint osteoarthritic changes are seen worse on the left side. No evidence of avascular necrosis of femoral heads. Pelvic ring appears intact. No suspicious bony lesions. Postsurgical changes are seen in visualized lower lumbar spine. Soft tissues: The visualized bowel gas pattern is normal. No suspicious soft tissue calcifications. IMPRESSION: No gross acute right hip fracture or dislocation. Left worse than right bilateral hip joint osteoarthritis. No evidence of avascular necrosis. Dictated by: Twan Sousa M.D. on 03/10/2024 at 20:28 Approved by: Twan Sousa M.D. on 03/10/2024 at 20:29 [facility] Narrative Medical decision making narrative: 79-year-old female with ground level fall, left-sided greater than right-sided hip pain. Screening x-rays were done from triage, arthritic change noted both hips, no dislocations. Patient having difficulty moving left hip, we will obtain CT pelvis. CT pelvis performed, no fractures seen, no dislocations, arthritic changes noted. Right femoral neck small lytic lesion noted, however this is apparently not very symptomatic since patient can flex and extend the right hip, likely incidental finding and not traumatic related. Oral dose naproxen, tramadol. Home pack tramadol. She has walking stick supports and we will try weight-bearing after medications. [place] better, was able to ambulate, discharged home with . Return precautions discussed Discharge Plan Departure Patient Disposition: Home Clinical Impression: Fall from ground level, Strain of left hip, Strain of right hip Activity Restrictions/Additional Instructions: Fall from ground level, left-sided hip area discomfort more so than right side. Screening x-rays initially negative. Concerned that you might not be able to move your left hip very well. CT pelvis imaging additionally performed. There was a small lesion noted in the right femoral area, this is likely not ne cessarily trauma related since you seemed to be less symptomatic on that side and able to flex and extend your right hip without pain, likely this is an incidental finding, follow up as an outpatient. No fracture or dislocation noted from either hip, though there is arthritic change on both sides. Some tenderness to right anteromedial musculature, possible muscular strain in this area, versus hip strain itself with referred pain. Trial of anti-inflammatory pain medications with naproxen [id number], can use tramadol additional pain control measures, home pack provided, to take if needed. Use your walking stick rubber tip support walking stick devices. Recheck symptoms with your regular doctor on Wednesday if persistent symptoms. Return to this/nearest emergency department for any change worsening symptoms or any concerns prior Prescriptions: No Action naproxen sodium 220 mg capsule 220 mg PO BID PRN (Reason: Pain (Scale Score 1-3)) turmeric (bulk) [Curcumin] miscellaneous Rx Instructions: 665mg diphenhydramine HCl [Allergy Relief(diphenhydramin)] 25 mg tablet 12.5 mg PO BEDTIME PRN Rocklatan 0.02-0.005 % drops EYE-BOTH ferrous sulfate [Feosol] 325 mg (65 mg iron) tablet 325 mg PO DAILY levothyroxine 100 mcg tablet 100 mcg PO DAILY Qty: 90 3RF nortriptyline 10 mg capsule See Rx Instructions .ROUTE .COMPLEX Qty: 90 3RF Dose Instruction: take 1 capsule by mouth at bedtime Rx Instructions: take 1 capsule by mouth at bedtime timolol maleate 0.5 % drops 1 drp EYE-RIGHT BID vitamin E 400 unit Capsule 400 unit PO DAILY cholecalciferol (vitamin D3) [Vitamin D3] 2,000 unit Tablet 2,000 unit PO DAILY aspirin 81 mg Tablet,Chewable 81 mg PO DAILY Referrals: Jeane Polanco DO [Primary Care Provider] - Stand Alone Forms: Patient Portal/API/Survey
--- NOTE | 2024-03-10 22:33 | PC.NURSE ---
Pt assisted to restroom via wheel chair. Able to transfer self with some difficulty. States feeling of difficulty lifting leg and wants to drag it instead of lift and move.
--- NOTE | 2024-03-10 22:40 | PC.NURSE ---
Assisted pt back into ED stretcher. Pt states I just can't seem to find a comfortable position.
[2024-03-11] MEDS: ACETAMINOPHEN 325 MG TABLET 650 MG PO (00:16)
[2024-03-11] MEDS: TRAMADOL 50 MG PREPACK 1 BOTTLE MISC (00:16)
[2024-03-11] MEDS: NAPROXEN 250 MG TABLET PO (00:17)
[2024-03-11 00:24] VITALS: BP 141/86; PULSE 74; RESP 16; O2SAT 97
== END 2024-03-11 00:24 | disposition home or self-care (01) ==
PROVIDERS: Emergency Provider Emergency Medicine; Family Provider Family Medicine; PCP Family Medicine
DX: S76.012A Strain of muscle, fascia and tendon of left hip, initial encounter (principal); S76.011A Strain of muscle, fascia and tendon of right hip, initial encounter; W01.0XXA Fall on same level from slipping, tripping and stumbling without subsequent striking against object, initial encounter
CPT/HCPCS: 72192; 73521; 99283; 99284

== ENCOUNTER → 2024-04-27 12:08 | Outpatient (CLI) | payer MEDICARE, OTHER, SELFPAY ==
[2024-04-27 12:54] LABS: Appearance Urine UA CLEAR; Bilirubin Urine UA NEGATIVE (NEGATIVE); Color Urine UA YELLOW; Glucose Urine UA NEGATIVE (Negative); Ketones Urine UA NEGATIVE (NEGATIVE); Leukocyte Esterase Urine UA TRACE (NEGATIVE); Nitrite Urine UA NEGATIVE (Negative); Occult Blood Urine UA 1+ (Negative); Protein Urine UA NEGATIVE (Negative); Urobilinogen Urine UA 0.2 E.U./dL (0.2)
[2024-04-27 13:10] LABS: Bacteria Urine None Seen; Culture Indicated Urine Cult Not Indicated; RBC Urine 1-5/HPF (0-5/HPF); Squamous Epithelial Cell Urine None Seen (0-5/HPF); Urine Volume 10mL (spun); WBC Urine 0-1/HPF (0-5/HPF)
== END ==
PROVIDERS: Family Provider Family Medicine; PCP Family Medicine; Referring Provider Family Medicine; Visit Provider Family Medicine
DX: R31.0 Gross hematuria (principal)
CPT/HCPCS: 81001

== ENCOUNTER → 2024-05-19 10:26 | Outpatient (CLI) | payer MEDICARE, OTHER, SELFPAY ==
--- NOTE | 2024-05-19 10:27 | DI.RAD.S_ITS ---
PROCEDURE: XR DEXA AXIAL W/VFA INDICATIONS: recheck after parathyroidectomy. COMPARISON: 03/26/2023 FINDINGS: Lumbar Spine: Bone mineral density is 0.82 g/cm2, T score -1.8, similar to prior. Left Femoral Neck: Bone mineral density 0.595 g/cm2, T score -2.3, previously -2.6 Left Hip: Bone mineral density 0.596 g/cm2, T score -2.8, previously -2.9. Fracture Risk Calculation (when applicable): Not applicable due to osteoporosis (T score greater or equal to -1.0 to: NORMAL) (T score from -1.1 to -2.4: OSTEOPENIA) (T score less than or equal to -2.5: OSTEOPOROSIS) IMPRESSION: Osteoporosis, with T-scores above. Femoral neck T-score is slightly improved. Follow-up guidelines as follows: Osteoporosis: Consider a repeat DEXA and Vertebral Fracture Assessment (VFA) exam in 2 years or sooner if medically necessary, to reassess this patient's status. Osteopenia: Consider a repeat DEXA in 2-3 years to reassess this patient's status, or if there is a new clinical indication. Normal: Consider a repeat DEXA in 5 years or sooner, or if there is a new clinical indication. All treatment decisions require clinical judgment and consideration of individual patient factors, including patient preferences, comorbidities, previous drug use, risk factors not captured in the FRAX model (e.g., frailty, falls, vitamin D deficiency, increased bone turnover, interval significant decline in bone density ) and possible under- or over-estimation of fracture risk by FRAX. In addition, the NOF Guide recommends that FDA-approved medical therapies be considered in postmenopausal women and men age >= 50 years with a: * Hip or vertebral (clinical or morphometric) fracture * T-score of <=-2.5 at the spine or hip * Ten-year fracture probability by FRAX of >= 3% for hip fracture or >=20% for major osteoporotic fracture. Dictated by: Alejandro Campos M.D. on 05/22/2024 at 10:51 Approved by: Alejandro Campos M.D. on 05/22/2024 at 10:53
== END ==
PROVIDERS: Family Provider Family Medicine; PCP Family Medicine; Referring Provider Family Medicine; Visit Provider Family Medicine
DX: M81.0 Age-related osteoporosis without current pathological fracture (principal)
CPT/HCPCS: 77085

== ENCOUNTER → 2024-05-30 09:30 | Outpatient (CLI) | payer MEDICARE, OTHER, SELFPAY | PROVIDERS: Family Provider Family Medicine; PCP Family Medicine; Visit Provider Urology | DX: R31.9 Hematuria, unspecified (principal); R39.9 Unspecified symptoms and signs involving the genitourinary system | CPT/HCPCS: 87086 ==

== ENCOUNTER → 2024-06-15 07:33 | Outpatient (CLI) | payer MEDICARE, OTHER, SELFPAY ==
[2024-06-15 08:21] LABS: Estimated Glomerular Filt Rate > 60 mL/min (>60)
== END ==
PROVIDERS: Family Provider Family Medicine; PCP Family Medicine; Referring Provider Urology; Visit Provider Urology
DX: R31.0 Gross hematuria (principal)
CPT/HCPCS: 36415; 82565

== ENCOUNTER → 2024-06-19 10:43 | Outpatient (CLI) | payer MEDICARE, OTHER, SELFPAY ==
--- NOTE | 2024-06-19 10:45 | DI.CT.S_ITS ---
PROCEDURE: CT IVP A/P W/WO INDICATIONS: gross hematuria, eval upper tracts. TECHNIQUE: Optional 5 mm thick noncontrast images acquired from the diaphragm to the symphysis pubis. After the administration of intravenous contrast, 5 mm thick images acquired from the diaphragm to the symphysis pubis after a 10-minute delay. 2 mm thick coronal and sagittal reformats were then performed of the kidneys and ureters. For radiation dose reduction, the following was used: automated exposure control, adjustment of mA and/or kV according to patient size. COMPARISON: [facility], CT, CT ABDOMEN WO CON, 02/26/2023, 9:52. [facility], CT, CT PEL WO CON, 03/10/2024, 21:13. FINDINGS: Image quality: Diagnostic. Kidneys and Ureters: Both kidneys are normal in size. Tandem obstructing kidney stones in the proximal left ureter measuring 0.8 x 0.5 cm and 0.7 x 0.6 cm, (4/61, 60). Moderate left hydronephrosis. Nonobstructing right kidney stone measuring 0.4 cm. No perinephric fat stranding. There is normal bilateral renal enhancement. Renal calyces appear normal in morphology when filled with contrast. No additional filling defect in the opacified portions of the ureters. Bladder: Mostly decompressed. No calcified bladder stones. OTHER: Lower chest: Unremarkable. Liver: No solid mass. Gallbladder: No radiopaque gallstones or wall thickening. Biliary ducts: No biliary dilation. Pancreas: No ductal dilation. Spleen: Size is within normal limits. Adrenal Glands: No adrenal nodules. Stomach and Bowel: Normal colonic caliber, without significant wall thickening. Normal appendix Peritoneum: No abnormal intraperitoneal fluid. No free air. Ventral Wall: No hernia. Abdominal Nodes: No retroperitoneal or mesenteric adenopathy by size criteria. Vessels: Aorta and inferior vena cava are normal in size. PELVIS: Pelvic Organs: Uterus is absent. Pelvic Nodes: No enlarged lymph nodes. Miscellaneous: No inguinal hernias are seen. Bones: No aggressive osseous abnormality. L4-L5 pedicle screw fixation. IMPRESSION: 1. Moderate left hydronephrosis. Obstructing calculi x2 in the proximal left ureter measuring 0.8 cm and 0.7 cm. 2. Additional small nonobstructing right kidney stone. 3. No solid renal mass. No additional upper urinary tract filling defect. Dictated by: Vasu Solis M.D. on 06/19/2024 at 12:18 Approved by: Vasu Solis M.D. on 06/19/2024 at 12:30
== END ==
PROVIDERS: Family Provider Family Medicine; PCP Family Medicine; Referring Provider Urology; Visit Provider Urology
DX: N13.2 Hydronephrosis with renal and ureteral calculous obstruction (principal); R31.0 Gross hematuria
CPT/HCPCS: 74178; Q9967

== ENCOUNTER → 2024-06-27 11:06 | Outpatient (CLI) | payer MEDICARE, OTHER, SELFPAY | PROVIDERS: Family Provider Family Medicine; PCP Family Medicine; Visit Provider Urology | DX: N20.1 Calculus of ureter (principal); R31.0 Gross hematuria | CPT/HCPCS: 81002; 87086; 99214 ==

== ENCOUNTER 2024-07-28 06:12 | Day surgery (SDC) | payer MEDICARE, OTHER, SELFPAY ==
[2024-07-24 14:37] VITALS: BMI 20.7
[2024-07-28] VITALS (8 sets, daily range): BP systolic 110–140; BP diastolic 66–82; PULSE 68–96; RESP 16; TEMP 36.1–36.8; O2SAT 96–98; BMI 20.3
--- NOTE | 2024-07-28 | DI.RAD.S_ITS ---
PROCEDURE: XR ABDOMEN 1V INDICATIONS: LT STENT PLACEMENT TECHNIQUE: To intra-operative images acquired by the Urology service. COMPARISON: None. FINDINGS: Contrast opacified moderately dilated left renal collecting system contains the proximal component of the ureteral stent. Distal aspect of the radial stent superiorly adjacent to the left pubic bone. IMPRESSION: Left ureteral stent and partially opacified moderately dilated left renal collecting system. Dictated by: Dandy Page M.D. on 07/30/2024 at 0:01 Approved by: Dandy Page M.D. on 07/30/2024 at 0:02
[2024-07-28] MEDS: LACTATED RINGERS 1,000 ML 21 ML IV (07:04)
--- NOTE | 2024-07-28 07:36 | PM.HP.IH.1 ---
History of Present Illness History of Present Illness Date Patient Seen: 07/28/24 Chief complaint: Cysto/Ureteroscopy/Laser Lithotripsy Narrative: 79 y/o F returns to OR for a scheduled left ureteroscopy, laser lithotripsy and left ureteral stent placement with a possible TURBT. Briefly, she admits to 3-4 days of gross hematuria in June of 2023 that otherwise spontaneously resolved and was not associated with any other urinary symptoms. She has been followed by her PCP w/ multiple UA's over the last 12 months that continue to demonstrate microscopic hematuria. Of note, she had a CT IVP and cystoscopy for asymptomatic microscopic hematuria in 2010, both of which were reportedly negative (I do not have any records of this). She otherwise denies any smoking history or FH of kidney or bladder cancer. Regarding her CT IVP results, these were notable for an 8 and 7 mm stone within her left proximal ureter (immediately on top of each other) resulting in moderate left hydroureteronephrosis. No other concerning findings were noted. Of note, she was found to have hypercalcemia a few years ago that led to a parathyroidectomy in 2023. Of note, she does take a daily baby ASA for preventative health. [facility] Medical History Microscopic hematuria History of peptic ulcer disease Hx of iron deficiency anemia Unintentional weight loss (~2022) Chronic heel pain Hyperlipidemia Osteoporosis Thyroid nodule Tubular adenoma of colon (2013) Anemia Lumbar spinal stenosis Lymphoma, non-Hodgkin's (2008) Hepatitis C (2012) Surgical History Hx of cataract surgery Hx of parathyroidectomy History of back surgery History of oophorectomy (2009) History of hysterectomy for benign disease (1983) History of colonoscopy (2007) Family History Father Coronary artery disease Mother Dementia Sister Hyperlipidemia Social History marital status: household members: spouse Smoking Status: Never smoker alcohol intake: current caffeine: Yes Type(s) of exercise: walking frequency: daily Meds Home Medications and Allergies Home Medications Medication Instructions Recorded Confirmed Type cholecalciferol (vitamin D3) 50 2,000 unit PO DAILY 10/12/17 07/28/24 History mcg (2,000 unit) tablet (Vitamin D3) vitamin E 268 mg (400 unit) capsule 400 unit PO DAILY 10/12/17 06/27/24 History aspirin 81 mg chewable tablet 81 mg PO DAILY 04/27/18 07/28/24 History naproxen sodium 220 mg capsule 220 mg PO BID PRN Pain (Scale 03/02/19 07/28/24 History Score 1-3) timolol maleate 0.5 % eye drops 1 drp EYE-RIGHT BID 08/10/22 07/28/24 History turmeric (bulk) [Curcumin] miscellaneous 08/10/22 06/27/24 History diphenhydramine HCl 25 mg tablet 12.5 mg PO BEDTIME PRN 02/16/23 06/27/24 History (Allergy Relief (diphenhydramine)) netarsudil 0.02 %-latanoprost drp EYE-BOTH 07/23/23 06/27/24 History 0.005 % eye drops (Rocklatan) ferrous sulfate 325 mg (65 mg 325 mg PO DAILY 02/28/24 07/28/24 History iron) tablet (Feosol) levothyroxine 100 mcg tablet 100 mcg PO DAILY #90 tabs 02/28/24 07/28/24 Rx nortriptyline 10 mg capsule See Rx Instructions .Route 02/28/24 07/28/24 Rx .COMPLEX #90 caps Allergies Allergy/AdvReac Type Severity Reaction Status Date / Time dorzolamide Allergy Intermediate itchy red Verified 07/28/24 06:55 swollen eyes brimonidine [From Alphagan P] Allergy Unknown Verified 07/28/24 07:24 levofloxacin [LEVOFLOXACIN] AdvReac Mild TENDONITIS Verified 07/28/24 06:55 Review of Systems Review of Systems Narrative: CONSTITUTIONAL: Denies weight loss, fevers, chills. HEENT: Denies change in vision, hearing. RESP: Denies SOB, cough. CV: Denies palpations, CP. GI: Denies abdominal pain, nausea, vomiting, diarrhea. : Denies dysuria, hematuria, inability to void. MSK: Denies myalgia, joint pain. SKIN: Denies rash, pruritus. NEURO: Denies headache, syncope. PSYCH: Denies recent change in mood, anxiety, depression. Exam Vital Signs (past 8 hours): - 07/28/24 07:00 Temperature 98.3 F Pulse Rate 68 Respiratory Rate 16 Blood Pressure 140/82 Pulse Oximetry 96 Narrative Exam Narrative: GEN: Alert and oriented X3. No acute distress. Well-nourished. EYES: PERRLA, EOMI. HENT: Moist mucus membranes, no scleral icterus, normal neck ROM. RESP: Unlabored breathing, equal rise and fall of chest bilaterally, no cyanosis appreciated. CV: No peripheral edema, unremarkable heart rate. ABD: Soft, non-tender, non-distended, no palpable masses. EXT: No edema, clubbing or cyanosis. SKIN: No rashes or lesions. NEURO: No focal neurologic deficits, CN II-XII grossly intact. PSYCH: Cooperative, appropriate mood and affect. Assessment & Plan Assessment and plan (1) Ureteral calculus, left: Status: Acute Plan: 79 y/o F noted to have an 8 and 7mm left proximal ureterolith immediately on top of one another w/ resultant upstream moderate left hydroureteronephrosis. Discussed treatment options to include continued medical expulsion therapy vs cystoscopy, ureteroscopy, laser lithotripsy with ureteral stent placement. Discussed risks of the procedure to include pain, bleeding, infection, injury to urethra/bladder/ureter, inability to access the ureter requiring discussion with Interventional Radiology regarding a possible ureteral stent placement in an antegrade fashion vs a possible nephroureteral stent and/or percutaneous nephrostomy tube, urinary tract infection, inability to remove all of the stone in one setting, need for emergent open repair of bladder and/or ureter, need for multiple ureteroscopic interventions necessary to render the patient stone free. Informed consent was obtained today. (2) Gross hematuria: Status: Acute Plan: Discussed that outside of the aforementioned stones, her imaging was unremarkable. Discussed that we will perform her cystoscopy under the same anesthetic as her stone management. Discussed that should a bladder mass be present, I would perform a TURBT at the same time. Discussed risks of the procedure to include pain, bleeding, infection, injury to urethra/prostate/bladder/ureteral orifice, need for a ureteral stent, prolonged catheterization, and possible open repair of ureteral and/or bladder injury. Informed consent was obtained for this procedure as well. Time-Based Coding :: [TOTAL MINUTES] spent with patient and on the chart (including review of chart, obtaining history, exam, reviewing outside data, placing orders, documenting exam and treatment plan, and counseling patient) on [DATE]. [employer] Operator Document charge(s): Yes Charge Codes Initial inpatient/observation care: 42840
[2024-07-28] MEDS: CEFAZOLIN 2 GM/100 ML PREMIX 100 ML IV (07:45)
--- NOTE | 2024-07-28 08:08 | SUR.OPER ---
Lithotomy on padded OR bed, head on pillow, arms secured on padded arm boards at <90 degrees abduction. Legs secured in padded yellow fins stirrups.
[2024-07-28] MEDS: iopamidoL 30 ML VIAL INJ (08:15)
--- NOTE | 2024-07-28 09:13 | PM.OP.1 ---
Operative Date/Time/Diagnoses Date of procedure: 07/28/24 Time of procedure: 09:18 Pre-op diagnosis: Left ureteral stone, gross hematuria Post-op diagnosis: same Procedure & Clinicians Procedure: Cystoscopy Left retrograde ureteropyelogram Left ureteroscopy, laser lithotripsy Left ureteral stent placement Intraoperative interpretation of fluoroscopic images, total time < 1 hour Same procedure as scheduled: Yes Indications: 79 y/o F noted to have gross hematuria and two large left proximal ureteral stones who failed medical expulsion therapy and required definitive stone management via a cystoscopy, left ureteroscopy, laser lithotripsy and left ureteral stent placement Surgeon: Pete Marino Click Yes if Unassisted: Yes Anesthesia Type: General Operative Notes Findings: Unremarkable cystoscopy, two large left proximal ureteral stones Closure Type: not applicable Specimen(s): other (left ureteral stone) Estimated Blood Loss (mL): 2 Blood products transfused: none Procedure in detail: Patient was identified in the preoperative holding area and consent confirmed. She was then brought to the operating room where general anesthesia was induced.? She was placed in the low lithotomy position. She was then prepped and draped in the usual sterile fashion. A surgical timeout was conducted and all were in agreement. Access to the bladder was obtained via a 30 degree cystoscope.? Complete cystoscopy was then performed and no concerning bladder masses or lesions were appreciated.? Bilateral ureteral orifices were easily identified and noted to be orthotopic in nature.? The left ureteral orifice was then cannulated using a 0.035 sensor tip ureteral guidewire and a 5Fr ureteral catheter was advanced over the guidewire and into the distal left ureter.? The guidewire was then removed and a retrograde ureteropyelogram was performed which noted a large filling defect in the proximal ureter, consistent with CT findings of two large stones in this area.? The ureteral guidewire was then readvanced through the ureteral catheter and into the left renal pelvis.? The ureteral catheter was then removed and a semirigid ureteroscope was easily advanced into her left ureter alongside the guidewire and to the level of the stone.? A 200 micron laser fiber was then utilized to perform laser lithotripsy.? The semirigid ureteroscope was then removed and an 11/13Fr ureteral access sheath was advanced over the guidewire and into the left proximal ureter. The inner obturator and guidewire were then removed and the flexible ureteroscope was advanced through the sheath and into the left renal collecting system. Complete pyeloscopy was performed and multiple small stone fragments were appreciated. All stone fragments >1mm in size were removed via the stone basket and sent for chemical analysis.? The ureteral guidewire was then advanced through the ureteroscope and into the left renal collecting system. The ureter was then directly visualized upon removal of the ureteroscope and noted to be stone free.? A 6Fr multi-length JJ ureteral stent with string was then advanced over the ureteral guidewire.? Upon removal of the guidewire, a good curl was noted in the left renal pelvis and the bladder using fluoroscopy.? The bladder was then drained.? Anesthesia was reversed, she was extubated in the OR and transferred to the PACU in stable condition for recovery. Complications: none Post-operative Condition: stable Disposition: PACU Plan for aftercare: Discharge home from PACU. Will return to Urology clinic in 3 months for a RBUS and stone analysis discussion.
[2024-07-28] MEDS: ACETAMINOPHEN 325 MG TABLET 975 MG PO (09:48)
[2024-07-28] MEDS: PHENAZOPYRIDINE 100 MG TABLET 200 MG PO (09:48)
[2024-07-28] MEDS: OXYBUTYNIN 5 MG TABLET PO (09:49)
[2024-07-28] MEDS: OXYCODONE IR 5 MG TABLET PO (09:49)
[2024-07-28] MEDS: ONDANSETRON 4 MG/2 ML INJ IV (09:51)
--- NOTE | 2024-07-28 10:41 | SUR.PHASEII ---
Discharged patient home with in stable conditions. All belongings returned to patient. Written instructions regarding discharge plan provided to patient.
== END 2024-07-28 10:40 | disposition home or self-care (01) ==
PROVIDERS: Family Provider Family Medicine; PCP Family Medicine; Referring Provider Urology; Visit Provider Urology
PROC: 0TF78ZZ Fragmentation in Left Ureter, Via Natural or Artificial Opening Endoscopic (ICD-10-PCS; CPT 52353; principal; 2024-07-28 07:45)
DX: N20.1 Calculus of ureter (principal)
CPT/HCPCS: 52356; 74018; 74420; 76000; 82365; C2617; J0690; J1100; J2405; J2704; J3010; Q9967

== ENCOUNTER → 2024-10-10 12:05 | Outpatient (CLI) | payer MEDICARE, OTHER, SELFPAY ==
[2024-10-10 12:58] LABS: Hematocrit 33.9 % (36-46); Hemoglobin 11.4 g/dL (12.0-16.0); Mean Corpuscular HGB Conc 33.5 % (30-36); Mean Corpuscular Hemoglobin 31.7 PG (26-34); Mean Corpuscular Volume 94.7 fL (80-100); Platelet Count 154 X10^3/uL (150-400)
[2024-10-10 13:52] LABS: Alanine Aminotransferase 11 IU/L (<35); Albumin 4.0 g/dL (3.5-5.0); Albumin Globulin Ratio 1.3 (1.0-2.8); Alkaline Phosphatase 57 U/L (38-126); Blood Urea Nitrogen 17 mg/dL (7-17); Calcium 9.0 mg/dL (8.4-10.2); Carbon Dioxide 25 mmol/L (22-32); Chloride 101 mmol/L (98-107); Estimated Glomerular Filt Rate > 60 mL/min (>60); Globulin 3.2 g/dL (1.7-4.1); Glucose 93 mg/dL (70-99); HEMOLYSIS < 15 (0-50); Potassium 4.4 mmol/L (3.4-5.1); Sodium 134 mmol/L (137-145); Total Protein 7.2 g/dL (6.3-8.2)
[2024-10-10 14:23] LABS: TSH w/ Reflex to FT4 0.31 uIU/mL (0.47-4.68)
[2024-10-10 14:48] LABS: Free T4, Direct Thyroxine 1.76 ng/dL (0.78-2.19)
== END ==
PROVIDERS: PCP Family Medicine; Referring Provider Family Medicine; Visit Provider Family Medicine
DX: E03.9 Hypothyroidism, unspecified (principal); E83.52 Hypercalcemia; D64.9 Anemia, unspecified
CPT/HCPCS: 36415; 80053; 84439; 84443; 85027